=== PATIENT | female | born 2005 | race Caucasian/White ===

== ENCOUNTER 2023-03-02 02:01 | Emergency (ER) | payer OTHER, SELFPAY ==
[2023-03-02 02:03] VITALS: BP 143/82; PULSE 118; RESP 20; TEMP 37.7; O2SAT 97; BMI 32.1
[2023-03-02] MEDS: 0.9% Normal Saline (1000mL) 1,000 ML 1000 ML IV ×2 (03:28→04:10)
--- NOTE | 2023-03-02 03:28 | EDS_ITS ---
HPI History of Present Illness Chief Complaint: General Illness Informant: patient, parent and friend Narrative Narrative: 17-year-old female brought to the emergency department with fever and dehydration. Patient states that over the past 5 days she has developed headache fever vomiting generalized weakness. She states that she does not have any light sensitivity or neck pain. No rashes. She states she feels very dehydrated and lightheaded when she walks. She notes dark urine. No diarrhea. PFSH PFSH Medical History Anxiety Depression Obesity Tobacco use Medical History no medical history Home Medications fluoxetine 40 mg capsule (Prozac) 60 mg PO DAILY 03/02/23 [History Last Taken Unknown] ondansetron 4 mg disintegrating tablet 4 mg PO Q6H PRN PRN Nausea #15 tabs 03/02/23 [Rx Last Taken Unknown] potassium chloride 20 mEq tablet,extended release 20 meq PO BID #10 tabs 03/02/23 [Rx Last Taken Unknown] Allergy/AdvReac Type Severity Reaction Status Date / Time No Known Allergies Allergy Verified 03/02/23 02:06 Surgical History no surgical history Social History Smoking Status: Current some day smoker tobacco type: e-cigarettes EXAM Physical Exam Narrative Exam Narrative: Patient actively vomiting Const Vital Signs: 03/02/23 02:03 03/02/23 02:04 03/02/23 05:18 Temperature 100 F H Temperature Source Oral Pulse Rate 118 H 91 Respiratory Rate 20 H 18 Respiratory Effort Normal Respiratory Pattern Normal Blood Pressure 143/82 H 118/61 Blood Pressure Mean 102 80 Pulse Ox 97 95 Oxygen Delivery Method Room Air Room Air Positive well nourished and well developed General Appearance ED: well developed HEENT Reports normocephalic, head/scalp atraumatic and dry mucous membranes Mouth ED: Yes dry mucous membranes Mouth: dry mucous membranes Eyes PERRL and EOMs intact bilaterally Neck no lymphadenopathy, supple and no JVD Resp normal respiratory effort and clear to auscultation bilaterally Cardio regular rate, regular rhythm and no murmurs Rate: tachycardic GI normal to inspection, nondistended, normoactive bowel sounds and non-tender Palpation: soft Back/Spine no CVA tenderness and normal ROM Extremity normal to inspection General Extremety ED: Negative for edema General Extremity: Negative for edema Neuro oriented x3 and CN's II-XII intact bilaterally Sensorium / Orientation: alert Motor Exam: strength 5/5 throughout Psych mental status grossly normal Mood & Affect: Negative for depressed or tearful Skin no rashes or lesions noted and no wounds MDM MDM MDM Narrative Medical decision making narrative: IV was established and the patient received nausea medications and IV fluids. White count 4.1. Lymphocytes at 58.9. BMP potassium of 2.9 sodium 135. Patient has elevated transaminases and alkaline phosphatase but also an elevated bilirubin. Normal lipase not urinalysis with ketones and no overt infection. COVID influenza were negative. CT of the abdomen pelvis demonstrates some mild splenomegaly no biliary duct dilatation or inflammatory process. I added on mononucleosis which came back positive. This would certainly explain the splenomegaly the viral syndrome and the hepatitis. 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 In addition to IV fluids patient was able to tolerate oral potassium replacement. I am going to replace her potassium at home over the next 5 days as well as providing some Zofran. I talked to the patient and her friend and her mother at length. We talked about return instructions and that this may take a a while to improve. History & Record Review Discussion w/independent historian: Patient Lab Data Attestation: I reviewed the patient's lab results. Labs: Laboratory Results - last 24 hr 03/02/23 03/02/23 03/02/23 03:20 03:22 05:15 WBC 4.1 L RBC 4.59 Hgb 13.8 Hct 38.9 MCV 84.7 MCH 30.1 MCHC 35.5 RDW Std Deviation 36.7 RDW Coeff of Shaneka 12.1 Plt Count 101 L MPV 10.4 Immature Gran % (Auto) 0.500 Neut % (Auto) 35.4 L Lymph % (Auto) 58.9 H [place] % (Auto) 3.6 Eos % (Auto) 0.2 Baso % (Auto) 1.4 H Absolute Neuts (auto) 1.5 L Absolute Lymphs (auto) 2.44 Nucleated RBC % 0 Differential Comment SCANNED Reactive Lymphocytes 2+ Sodium 135 L Potassium 2.9 L Chloride 100 Carbon Dioxide 26.0 Anion Gap 9 BUN 5 L Creatinine 0.73 Estim Creat Clear Calc 111.54 Est GFR (MDRD) Af Amer 132 Est GFR (MDRD) Non-Af 109 BUN/Creatinine Ratio 6.9 L Glucose 105 Calcium 8.4 L Magnesium 1.7 Total Bilirubin 3.00 H Direct Bilirubin 1.91 H AST 402 H ALT 308 H Alkaline Phosphatase 157 H Total Protein 6.9 Albumin 3.2 Globulin 3.7 Lipase 32 Serum , Qual NEGATIVE Urine Color Yellow Urine Clarity Sl. Cloudy Urine pH 7.0 Ur Specific [place] 1.010 Urine Protein 15 H Urine Glucose (UA) Normal Urine Ketones 150 A* Urine Occult Blood 25 H Urine Nitrite Negative Urine Bilirubin 1 H Urine Urobilinogen 12 H Ur Leukocyte Esterase 100 H Urine RBC 0 SEEN Urine WBC 0-5 SEEN Ur Squamous Epith Cells 0-5 SEEN Urine Bacteria 0 SEEN Urine Mucus 0 SEEN Monoscreen POSITIVE H Radiography Diagnostic Testing: Clinical Impression(s) from Imaging Studies Chest X-Ray 03/02/23 03:40 IMPRESSION: No radiographic evidence of acute cardiopulmonary disease. Electronically Signed: Esteban Anglin MD at 4:13 EST , Abdomen/Pelvis CT 03/02/23 04:03 IMPRESSION: 1. Mild splenomegaly. 2. Fatty liver. 3. No biliary obstruction. 4. No acute abdominal pelvic abnormality. Electronically Signed: Esteban Anglin MD at 4:57 EST , Discharge Plan Triage Chief Complaint: General Illness ED Provider: Wilian Palacios Dx/Rx/DC Orders Clinical Impression: Acute dehydration, Acute hepatitis, Acute febrile illness, Acute hypokalemia, Infectious mononucleosis Instructions: ED Hypokalemia, ED Mononucleosis Prescriptions: New potassium chloride 20 mEq tablet extended release 20 meq PO BID Qty: 10 0RF ondansetron [ondansetron] 4 mg tablet,disintegrating 4 mg PO Q6H PRN PRN (Reason: Nausea) Qty: 15 0RF No Action fluoxetine [Prozac] 40 mg capsule 60 mg PO DAILY Primary Care Provider: Christopher Hampton Referrals: Christopher Hampton DO [Primary Care Provider] - 1 Week Disposition Disposition: Home, Self Care
[2023-03-02] MEDS: Ondansetron 4 MG/2 ML Vial IV (03:29)
[2023-03-02] MEDS: Ketorolac 30 MG/ML Syringe IV (03:29)
[2023-03-02 03:38] LABS: Absolute Lymphocyte Count 2.44 X10^3/uL (0.83-4.51); Absolute Neutrophil Count 1.5 X10^3/uL (2.0-7.7); Basophil# 0.06 X10^3/uL; Basophil% 1.4 % (0-1); Eosinophil# 0.01 X10^3/uL; Eosinophils% 0.2 % (0-5); Hematocrit 38.9 % (37-47); Hemoglobin 13.8 g/dL (12.0-15.0); Lymphocyte # 2.44 X10^3/ul (0.83-4.51); Lymphocyte % 58.9 % (19-41); Mean Corp Hgb Conc 35.5 g/dL (32-36); Mean Corpuscular Hgb 30.1 pg (27.0-32.0); Mean Corpuscular Volume 84.7 fL (81-99); Mean Platelet Vol. 10.4 fl (6.2-12.0); Monocyte# 0.15 X10^3/uL; Monocyte% 3.6 % (0-10); NRBC Flagged by Analyzer 0 % (0-5); Neutrophil # 1.46 X10^3/uL (2.7-7.7); Neutrophil % 35.4 % (47-70); POSITIVE MORPHOLOGY YES; Platelet Count 101 K/mm3 (150-450); RBC Distribution Width CV 12.1 % (11.6-14.6); RBC Distribution Width SD 36.7 fl (35.1-43.9); Red Blood Count 4.59 M/mm3 (4.2-5.4); White Blood Count 4.1 K/mm3 (4.4-11.0)
--- NOTE | 2023-03-02 03:40 | RAD_ITS ---
EXAM: XR CHEST, 1 VIEW CLINICAL INDICATION: fever and cough TECHNIQUE: Frontal view of the chest. COMPARISON: No relevant prior studies available. FINDINGS: LUNGS AND PLEURAL SPACES: Unremarkable. No consolidation or edema. No pneumothorax. No effusion. HEART: Unremarkable. Cardiac silhouette not enlarged. MEDIASTINUM: Central airways and mediastinal contour are unremarkable. BONES/JOINTS: Unremarkable. No acute fracture. SOFT TISSUES: Unremarkable. RAD/Chest 1 View (Portable) IMPRESSION: No radiographic evidence of acute cardiopulmonary disease. Electronically Signed: Esteban Anglin MD at 4:13 EST ,
[2023-03-02 03:42] LABS: Differential Indicated SCAN CRITERIA MET
[2023-03-02 03:43] LABS: Bacteria 0 SEEN /hpf (None Seen); Mucous, Urine 0 SEEN /hpf (<or=2+); Red Blood Cells-Urine 0 SEEN /hpf (0-5)
[2023-03-02 03:45] LABS: Color, Urine Yellow (Yellow); Glucose, Dipstick Normal (Normal); Leukocyte Esterase-Dipstick 100 /ul (Negative); Nitrite-Dipstick Negative (Negative); Occult Blood-Urine 25 /ul (Negative); Protein-Dipstick 15 mg/dl (Negative); Urine Clarity Sl. Cloudy (Clear); Urine Urobilinogen 12 mg/dl (Normal)
[2023-03-02 04:00] LABS: AST(SGOT) 402 U/L (15-37); Alanine Aminotransfer ALT/SGPT 308 U/L (13-56); Albumin, Serum 3.2 g/dL (3.2-5.0); Alkaline Phosphatase 157 U/L (45-117); Anion Gap 9 (5-15); BUN 5 mg/dL (7-18); BUN/Creat Ratio 6.9 RATIO (10-20); Bilirubin, Direct 1.91 mg/dL (0.00-0.30); Calcium,Total 8.4 mg/dL (8.5-10.1); Chloride 100 mmol/L (98-107); Creatinine, Serum 0.73 mg/dL (0.55-1.02); EST Glomerular Filtration Rate 109 mL/min (>60); Est Glom Filt Rate - Afr Amer 132 mL/min (>60); Estimated Creatinine Clearance 111.54 ml/min; Globulin 3.7 g/dL (2.2-4.2); Glucose 105 mg/dL (74-106); Lipase 32 U/L (13-75); Potassium 2.9 mmol/L (3.5-5.1); Protein, Total 6.9 g/dL (6.4-8.2); Sodium Level 135 mmol/L (136-145)
--- NOTE | 2023-03-02 04:03 | CT_ITS ---
EXAM: CT ABDOMEN AND PELVIS WITH INTRAVENOUS CONTRAST CLINICAL INDICATION: vomiting obstructive jaundice TECHNIQUE: Helically acquired images were obtained of the abdomen and pelvis with intravenous contrast. This CT exam was performed using one or more of the following dose reduction techniques: automated exposure control, adjustment of the mA and/or kV according to patient size, and/or use of iterative reconstruction technique. CONTRAST: 100 cc of Isovue-370 IV. RADIATION DOSE: CTDIvol = 10.61 mGy, DLP = 931.84 mGy-cm COMPARISON: No relevant prior studies available. FINDINGS: LOWER THORAX: Unremarkable. Lung bases are clear. No cardiomegaly. No significant pericardial effusion. ABDOMEN: LIVER: There is diffuse low-attenuation of the liver. GALLBLADDER AND BILE DUCTS: Unremarkable. No calcified gallstones. No gallbladder distention or wall edema. No intra- or extrahepatic biliary ductal dilation. PANCREAS: Unremarkable. No focal cystic or solid mass. SPLEEN: Mild splenomegaly. ADRENALS: Unremarkable. No nodules. KIDNEYS AND URETERS: Unremarkable. Normal renal size and position. No hydronephrosis. STOMACH AND BOWEL: Unremarkable. No stomach or bowel distention. No focal inflammatory change. PELVIS: APPENDIX: Normal appendix. BLADDER: Unremarkable. REPRODUCTIVE: Unremarkable as visualized. No mass. ABDOMEN and PELVIS: INTRAPERITONEAL SPACE: Unremarkable. No ascites or other fluid collection. No free air. BONES/JOINTS: Unremarkable. No suspicious lytic or blastic abnormality. SOFT TISSUES: Unremarkable. No discrete abdominal or pelvic wall hernia. VASCULATURE: Unremarkable. Abdominal aorta is non-dilated. LYMPH NODES: Unremarkable. No enlarged lymph nodes. CT/Abdomen/Pelvis W IV Cont ONLY IMPRESSION: 1. Mild splenomegaly. 2. Fatty liver. 3. No biliary obstruction. 4. No acute abdominal pelvic abnormality. Electronically Signed: Esteban Anglin MD at 4:57 EST ,
[2023-03-02 04:05] LABS: Urine Bilirubin Dipstick 1 mg/dL (Negative)
[2023-03-02 04:07] LABS: Ketone-Dipstick 150 mg/dl (Negative); White Blood Cells 0-5 SEEN /hpf (0-5)
[2023-03-02 04:08] LABS: Squamous Epithelial Cells - UA 0-5 SEEN /hpf (5-10)
[2023-03-02 04:14] LABS: Internal QC Validated? YES +Cl - CLEAR BKGD; Pregnancy, Serum, hCG Quali. NEGATIVE Negative
[2023-03-02 04:34] LABS: Differential Comment SCANNED; Reactive Lymphocyte 2+
[2023-03-02 05:18] VITALS: BP 118/61; PULSE 91; RESP 18; O2SAT 95
[2023-03-02] MEDS: Potassium Chloride Oral Soln 20 MEQ/15 ML UDC 40 MEQ PO (05:30)
[2023-03-02 05:45] LABS: Magnesium 1.7 mg/dL (1.6-2.6)
[2023-03-02 05:50] LABS: Internal QC Validated? YES +Cl - CLEAR BKGD; Monotest POSITIVE (Negative); Record Kit Lot#, Mono 13231163
[2023-03-02] MEDS: 0.9% Normal Saline (1000mL) 1,000 ML 200 ML IV (05:50)
[2023-03-02 07:10] VITALS: BP 103/73; PULSE 96; RESP 20; O2SAT 97
[2023-03-04 13:08] LABS: HEPATITIS B SURFACE AG Negative (Negative); Hep C Antibodies Non Reactive (Non Reactive); Hepatitis A IgM Antibody Negative (Negative); Hepatitis B Core AB IgM Negative (Negative)
== END 2023-03-02 07:35 | disposition home or self-care (01) ==
PROVIDERS: Emergency Provider Emergency Medicine; PCP Family Medicine; Visit Provider Emergency Medicine
DX: E86.0 Dehydration (principal); K75.9 Inflammatory liver disease, unspecified; R50.9 Fever, unspecified; E87.6 Hypokalemia; B27.90 Infectious mononucleosis, unspecified without complication; F17.290 Nicotine dependence, other tobacco product, uncomplicated; F41.9 Anxiety disorder, unspecified; F32.A Depression, unspecified; Z79.899 Other long term (current) drug therapy
CPT/HCPCS: 71045; 74177; 80048; 80074; 80076; 81001; 83690; 83735; 84703; 85025; 86308; 87040; 87428; 96361; 96374; 96375; 99284; J7030; Q9967; A4216; J2405

== ENCOUNTER 2023-03-05 19:34 | Inpatient (IN) | payer OTHER, SELFPAY ==
[2023-03-05 19:40] VITALS: BP 121/75; PULSE 107; RESP 20; TEMP 37.6; O2SAT 98; BMI 32.7
[2023-03-05] MEDS: 0.9% Normal Saline (1000mL) 1,000 ML 1000 ML IV (20:07)
[2023-03-05 20:16] LABS: Absolute Lymphocyte Count 10.71 X10^3/uL (0.83-4.51); Absolute Neutrophil Count 2.3 X10^3/uL (2.0-7.7); Basophil# 0.06 X10^3/uL; Basophil% 0.4 % (0-1); Eosinophil# 0.09 X10^3/uL; Eosinophils% 0.6 % (0-5); Hemoglobin 13.4 g/dL (12.0-15.0); Lymphocyte # 10.71 X10^3/ul (0.83-4.51); Lymphocyte % 72.7 % (19-41); Mean Corp Hgb Conc 34.4 g/dL (32-36); Mean Corpuscular Volume 87.2 fL (81-99); Mean Platelet Vol. 10.6 fl (6.2-12.0); Monocyte# 1.52 X10^3/uL; Monocyte% 10.3 % (0-10); NRBC Flagged by Analyzer 0 % (0-5); Neutrophil # 2.29 X10^3/uL (2.7-7.7); Neutrophil % 15.6 % (47-70); POSITIVE DIFFERENTIAL YES; POSITIVE MORPHOLOGY YES; Platelet Count 128 K/mm3 (150-450); RBC Distribution Width CV 13.1 % (11.6-14.6); RBC Distribution Width SD 41.6 fl (35.1-43.9); Red Blood Count 4.47 M/mm3 (4.2-5.4); White Blood Count 14.7 K/mm3 (4.4-11.0)
--- NOTE | 2023-03-05 20:22 | EX.ED.DYSGE1 ---
HPI <CODY Mack - Last Filed: 03/05/23 21:30> History of Present Illness Chief Complaint: Abd Pain Narrative Narrative: Patient presenting today with her mom due to fatigue, abdominal pain, headaches, weakness, decreased appetite, leg cramps, and dehydration. Mom reports that on 03/02/2023 she was diagnosed with mononucleosis hepatitis. Patient reports that her symptoms have not necessarily gotten worse since then, but they are not getting any better. She reports that she is eating and drinking very little. She has only had one episode of vomiting since being seen on the . She has had intermittent fevers. She denies a PMH of any chronic health conditions. PFSH <CODY Mack - Last Filed: 03/05/23 21:30> PFSH Medical History Anxiety Depression Obesity Tobacco use Home Medications fluoxetine 40 mg capsule (Prozac) 60 mg PO DAILY 03/02/23 [History Last Taken Unknown] ondansetron 4 mg disintegrating tablet 4 mg PO Q6H PRN PRN Nausea #15 tabs 03/02/23 [Rx Last Taken Unknown] potassium chloride 20 mEq tablet,extended release 20 meq PO BID #10 tabs 03/02/23 [Rx Last Taken Unknown] Allergy/AdvReac Type Severity Reaction Status Date / Time No Known Allergies Allergy Verified 03/02/23 02:06 Social History Smoking Status: Current some day smoker tobacco type: e-cigarettes ROS <CODY Mack - Last Filed: 03/05/23 21:30> ROS ED Constitutional Constitutional ED: Reports fever(s) Cardiovascular Cardiovascular: Denies chest pain or palpitations Respiratory/Chest Respiratory/Chest: Denies cough or dyspnea Gastrointestinal Gastrointestinal: Reports abdominal pain and nausea; Denies constipation, diarrhea or vomiting Genitourinary Genitourinary ED: Denies dysuria, hematuria or urinary urgency Musculoskeletal Musculoskeletal: Reports myalgias Integumentary Denies rash Neurologic Neurologic: Reports headache(s) and weakness EXAM <CODY Mack - Last Filed: 03/05/23 21:30> Physical Exam Const Vital Signs: 03/05/23 19:40 03/05/23 21:31 Temperature 99.7 F H Temperature Source Oral Pulse Rate 107 H 94 Respiratory Rate 20 H 14 Blood Pressure 121/75 H 104/74 Blood Pressure Mean 90 84 Pulse Ox 98 100 Oxygen Delivery Method Room Air Positive well nourished, well developed and no apparent distress General Appearance ED: well developed HEENT Reports normocephalic, head/scalp atraumatic and dry mucous membranes HEENT Narrative: Posterior pharynx clear, uvula midline Mouth ED: Yes moist mucous membranes normal and Yes dry mucous membranes Mouth: dry mucous membranes Eyes PERRL and EOMs intact bilaterally Eyes Narrative: Minimal scleral icterus Neck full ROM and supple Chest Wall inspection of chest normal Resp normal respiratory effort and clear to auscultation bilaterally Cardio regular rate and regular rhythm GI soft to palpation, non-distended and no masses GI Narrative: Left upper quadrant tenderness to palpation without any rigidity, guarding, or peritoneal signs Back/Spine normal ROM and normal to inspection Extremity normal to inspection and full ROM Neuro oriented x3, CN's II-XII intact bilaterally, moves all extremities, no focal motor deficits and no sensory deficits noted Sensorium / Orientation: awake and alert Psych mental status grossly normal and thought process normal Skin no rashes or lesions noted and no wounds Skin Narrative: Mildly jaundiced. <Antolin Guerin MD - Last Filed: 03/05/23 21:57> Physical Exam Const Vital Signs: 03/05/23 19:40 03/05/23 21:31 Temperature 99.7 F H Temperature Source Oral Pulse Rate 107 H 94 Respiratory Rate 20 H 14 Blood Pressure 121/75 H 104/74 Blood Pressure Mean 90 84 Pulse Ox 98 100 Oxygen Delivery Method Room Air [facility] <CODY Mack - Last Filed: 03/05/23 21:30> [facility] Narrative Medical decision making narrative: Patient presenting with mononucleosis hepatitis. She was diagnosed on 03/02/2023 after having weakness, nausea, vomiting, and other cold-like symptoms for about 5 days. She reports that her symptoms are not necessarily worsening, they just are not improving. She has been feeling weak, fatigued, has a decreased appetite, feels dehydrated, and still has left upper quadrant abdominal pain. She is dry appearing, slightly febrile and mildly tachycardic. She is slightly jaundiced. She will be given IV fluids and ibuprofen. I reviewed her previous visit, hepatitis panel was obtained and was negative. CT of the abdomen and pelvis at that time showed splenomegaly. Labs will be obtained to rule out electrolyte abnormality, PREET, and assess liver enzymes. Patient's bilirubin and transaminases are elevated. I did speak with Dr. Rangel who recommends obtaining several different labs as well as having patient repeat blood daily for the next 3 days and to possibly add on steroids. I do feel that it would be beneficial for patient to be admitted to the hospital for further treatment and patient and her mother agree. She will be given additional IV fluids and I will speak with the hospitalist. I again spoke with Dr. Rangel, he does not recommend starting steroids at this time. He reports that it is very rare to see liver failure in cases like this and has low suspicion that patient would need transfer to a tertiary center with hepatology. He is willing to be consulted. Lab Data Attestation: I reviewed the patient's lab results. Lab results narrative: WBC 14.7, platelet count 128, elevated lymphocytes, sodium 134, bilirubin 6.6, AST 453, ALT 472, alkaline phosphatase 281 Labs: Laboratory Results - last 24 hr 03/05/23 03/05/23 20:00 21:10 WBC 14.7 H RBC 4.47 Hgb 13.4 Hct 39.0 MCV 87.2 MCH 30.0 MCHC 34.4 RDW Std Deviation 41.6 RDW Coeff of [place] 13.1 Plt Count 128 L MPV 10.6 Immature Gran % (Auto) 0.400 Neut % (Auto) 15.6 L Lymph % (Auto) 72.7 H [place] % (Auto) 10.3 H Eos % (Auto) 0.6 Baso % (Auto) 0.4 Absolute Neuts (auto) 2.3 Absolute Lymphs (auto) 10.71 H Nucleated RBC % 0 Differential Comment Diff Path Review July foll ESR 7 PT 14.1 INR 1.1 Sodium 134 L Potassium 3.9 Chloride 101 Carbon Dioxide 26.0 Anion Gap 7 BUN 6 L Creatinine 0.53 L Estim Creat Clear Calc 153.63 Est GFR (MDRD) Af Amer 192 Est GFR (MDRD) Non-Af 158 BUN/Creatinine Ratio 11.4 Glucose 94 Lactic Acid 1.7 Calcium 8.5 Total Bilirubin 6.60 H AST 453 H ALT 472 H Alkaline Phosphatase 281 H Lactate Dehydrogenase 697 H Total Creatine Kinase 20 L C-React Prot Ext Range 41.60 H Total Protein 7.0 Albumin 2.7 L Globulin 4.3 H Albumin/Globulin Ratio 0.6 L <Antolin Guerin MD - Last Filed: 03/05/23 21:57> [facility] Narrative Medical decision making narrative: Patient presenting with mononucleosis hepatitis. She was diagnosed on 03/02/2023 after having weakness, nausea, vomiting, and other cold-like symptoms for about 5 days. She reports that her symptoms are not necessarily worsening, they just are not improving. She has been feeling weak, fatigued, has a decreased appetite, feels dehydrated, and still has left upper quadrant abdominal pain. She is dry appearing, slightly febrile and mildly tachycardic. She is slightly jaundiced. She will be given IV fluids and ibuprofen. I reviewed her previous visit, hepatitis panel was obtained and was negative. CT of the abdomen and pelvis at that time showed splenomegaly. Labs will be obtained to rule out electrolyte abnormality, PREET, and assess liver enzymes. Patient's bilirubin and transaminases are elevated. I did speak with Dr. Rangel who recommends obtaining several different labs as well as having patient repeat blood daily for the next 3 days and to possibly add on steroids. I do feel that it would be beneficial for patient to be admitted to the hospital for further treatment and patient and her mother agree. She will be given additional IV fluids and I will speak with the hospitalist. I again spoke with Dr. Rangel, he does not recommend starting steroids at this time. He reports that it is very rare to see liver failure in cases like this and has low suspicion that patient would need transfer to a tertiary center with hepatology. He is willing to be consulted. Dr. Guerin: I have personally performed a face to face assessment of the patient and have reviewed the SMITH Note. I performed a substantive portion of the visit including all aspects of the following. My bundy findings include: History is recent diagnosis of mononucleosis. Had hepatitis and splenomegaly on CT scan. Returns with feelings of dehydration, rapid heart rate, and now yellow skin. Exam is afebrile. Vital signs noted. Positive tachycardia. Lungs clear to auscultation bilaterally. Abdomen soft with normal active bowel sounds. Positive jaundice of skin. Medical Decision Making: I reviewed the patient's prior ED visit and her CT scan showed no evidence of obstructive process in the liver. Recheck LFTs.. Discussed with gastroenterology. Review of hepatitis panel is negative. Check INR. As the patient will require serial laboratories and she has worsening LFTs and continued tachycardia, patient discussed with the hospitalist as well for admission. Patient is in stable condition. Other additions or changes: [None] History & Record Review Discussion w/independent historian: Patient and Family Additional record(s) reviewed:: Prior ED visit and Prior labs Lab Data Labs: Laboratory Results - last 24 hr 03/05/23 03/05/23 20:00 21:10 WBC 14.7 H RBC 4.47 Hgb 13.4 Hct 39.0 MCV 87.2 MCH 30.0 MCHC 34.4 RDW Std Deviation 41.6 RDW Coeff of [place] 13.1 Plt Count 128 L MPV 10.6 Immature Gran % (Auto) 0.400 Neut % (Auto) 15.6 L Lymph % (Auto) 72.7 H [place] % (Auto) 10.3 H Eos % (Auto) 0.6 Baso % (Auto) 0.4 Absolute Neuts (auto) 2.3 Absolute Lymphs (auto) 10.71 H Nucleated RBC % 0 Differential Comment Diff Path Review May foll ESR 7 PT 14.1 INR 1.1 Sodium 134 L Potassium 3.9 Chloride 101 Carbon Dioxide 26.0 Anion Gap 7 BUN 6 L Creatinine 0.53 L Estim Creat Clear Calc 153.63 Est GFR (MDRD) Af Amer 192 Est GFR (MDRD) Non-Af 158 BUN/Creatinine Ratio 11.4 Glucose 94 Lactic Acid 1.7 Calcium 8.5 Total Bilirubin 6.60 H AST 453 H ALT 472 H Alkaline Phosphatase 281 H Lactate Dehydrogenase 697 H Total Creatine Kinase 20 L C-React Prot Ext Range 41.60 H Total Protein 7.0 Albumin 2.7 L Globulin 4.3 H Albumin/Globulin Ratio 0.6 L Discharge Plan Triage Chief Complaint: Abd Pain ED Midlevel Provider: Sana Castro ED Provider: Antolin Guerin Dx/Rx/DC Orders Clinical Impression: Acute dehydration, Infectious mononucleosis, Acute hepatitis Primary Care Provider: Christopher Hampton
[2023-03-05 20:31] LABS: Differential Indicated SCAN CRITERIA MET
[2023-03-05 20:33] LABS: ALB/GLOB Ratio 0.6 RATIO (0.9-2.4); AST(SGOT) 453 U/L (15-37); Alanine Aminotransfer ALT/SGPT 472 U/L (13-56); Albumin, Serum 2.7 g/dL (3.2-5.0); Alkaline Phosphatase 281 U/L (45-117); Anion Gap 7 (5-15); BUN 6 mg/dL (7-18); BUN/Creat Ratio 11.4 RATIO (10-20); Calcium,Total 8.5 mg/dL (8.5-10.1); Chloride 101 mmol/L (98-107); Creatinine, Serum 0.53 mg/dL (0.55-1.02); EST Glomerular Filtration Rate 158 mL/min (>60); Est Glom Filt Rate - Afr Amer 192 mL/min (>60); Estimated Creatinine Clearance 153.63 ml/min; Globulin 4.3 g/dL (2.2-4.2); Glucose 94 mg/dL (74-106); Potassium 3.9 mmol/L (3.5-5.1); Sodium Level 134 mmol/L (136-145)
[2023-03-05] MEDS: Ibuprofen 200 MG Tablet 400 MG PO (20:33)
[2023-03-05 21:12] LABS: International Normalized Ratio 1.1; Prothrombin Time (Protime)PT. 14.1 SECONDS (11.7-14.9)
[2023-03-05] MEDS: 0.9% Normal Saline (1000mL) 1,000 ML 999 ML IV (21:18)
--- NOTE | 2023-03-05 21:21 | PCM.HP.STD ---
[facility] - General General Date of Admission: 03/05/23 Date of Service: 03/05/23 Chief Complaint: Jaundice and abdominal pain. HPI Narrative EDDIE DAMON, is a 17 F with a past medical history of tobacco abuse, obesity; with BMI of 32.8 this admission, depression with anxiety and recently diagnosed infectious mononucleosis hepatitis with a recent admission to the ER here approximately three days ago who re-presents to the [facility] ER planing of continued jaundice and abdominal pain. Ms. Damon reports her's began approximately 5 days prior to admission with the abrupt onset of fatigue, malaise, generalized abdominal pain with decreased appetite and dehydration due to poor oral intake. Her mother informed the ER provider that she was formally diagnosed with mononucleosis hepatitis on March 02, 2023 and that her symptoms have not improved since that time. She also admits to intermittent fevers but she denies a history of liver injury due to Tylenol or other viral hepatitides. In the ER she was noted to have leukocytosis of 14.7 present on admission with moderate thrombocytopenia of 128 present on admission complicated by worsening acute liver inflammation evidenced by total bilirubin of 6.6 mg/dL (up from 3 mg/dL on 03/02/2023) along with hyper transaminasemia with AST of 453 U/L and ALT of 472 U/L (up from 402 U/L and 308 U/L respectively on 03/02/2023) and a normal INR of 1.1 present on admission with the ER provider recommending patient be admitted for IV fluids and possible steroid treatment after they conferred with Dr. Rangel of gastroenterology whose help is greatly appreciated. She was then admitted to the general medical floor for ongoing care for stay that is expected to be greater than 48 hours. [facility] Medical History Anxiety Depression Obesity Tobacco use Home Medications fluoxetine 40 mg capsule (Prozac) 60 mg PO DAILY depression 03/02/23 [History Last Taken 03/05/23] ondansetron 4 mg disintegrating tablet 4 mg PO Q6H PRN PRN Nausea #15 tabs 03/02/23 [Rx Last Taken Unknown] potassium chloride 20 mEq tablet,extended release 20 meq PO BID mineral #10 tabs 03/02/23 [Rx Last Taken 03/05/23] Allergy/AdvReac Type Severity Reaction Status Date / Time No Known Allergies Allergy Verified 03/02/23 02:06 Social History Smoking Status: Former smoker ROS ROS Narrative Review of systems: Constitutional: Patient admits to fevers, generalized weakness and malaise that is severe. Eyes: Patient denies visual changes but has obvious jaundice. ENT: Patient denies runny nose, ear pain or sore throat. Cardiovascular: Patient denies chest pain, chest pressure or palpitations. Respiratory: Patient denies shortness of breath or cough. Gastrointestinal: Patient admits to abdominal pain with nausea and very poor appetite. Genitourinary: Patient denies dysuria, hematuria or urinary frequency. Musculoskeletal: Patient admits to myalgias that are severe. Integumentary: Patient denies rash but has obvious jaundice. Neurologic: Patient admits to generalized tension type headache but denies paresthesias or focal neurologic weakness. Allergic: Patient denies lip swelling, tongue swelling or urticaria. Hematologic: Patient denies easy bleeding or easy bruisability. 14 point review systems otherwise negative except for positives noted above in HPI. Vital Signs Vital Signs Vital Signs: 03/05/23 19:40 Temperature 99.7 F H Temperature Source Oral Pulse Rate 107 H Respiratory Rate 20 H Blood Pressure 121/75 H Blood Pressure Mean 90 Pulse Ox 98 Oxygen Delivery Method Room Air Weight Weight: 196 lb 13.965 oz Body Mass Index (BMI) 32.7 Physical Exam Const alert and oriented x3 Constitutional Narrative: Patient is obese and appears to be in mild to moderate discomfort. General Appearance: cooperative HEENT normocephalic, head/scalp atraumatic and hearing grossly normal bilaterally HEENT Narrative: Oropharynx dry. Eyes PERRL and EOMs intact bilaterally Eyes Narrative: Conjunctivae are jaundiced. Neck no lymphadenopathy and supple Resp normal respiratory effort, no retractions, no use of accessory muscles and clear to auscultation bilaterally Cardio regular rate and regular rhythm GI normal to inspection, nondistended, normoactive bowel sounds, soft to palpation, non-distended and hepatosplenomegaly GI Narrative: Patient's abdomen is generally tender to palpation with evidence of hepatosplenomegaly. Extremity normal to inspection, full ROM and no clubbing, cyanosis or edema Skin Skin Narrative: Patient has no evidence of rash at this time but is severely jaundiced. Neuro oriented x3, CN's II-XII intact bilaterally, moves all extremities and no focal motor deficits Sensorium / Orientation: awake, alert, oriented to person, oriented to place and oriented to time Speech: speech normal Motor Exam: strength 5/5 throughout Psych affect normal Results Medical Records Data Attestation: I reviewed the patient's medical records Lab / Micro Data Attestation: I reviewed the patient's lab results. 03/05/23 20:00 03/05/23 20:00 Labs: Laboratory Results - last 24 hr 03/05/23 20:00: WBC 14.7 H, RBC 4.47, Hgb 13.4, Hct 39.0, MCV 87.2, MCH 30.0, MCHC 34.4, RDW Std Deviation 41.6, RDW Coeff of [place] 13.1, Plt Count 128 L, MPV 10.6, Immature Gran % (Auto) 0.400, Neut % (Auto) 15.6 L, Lymph % (Auto) 72.7 H, [place] % (Auto) 10.3 H, Eos % (Auto) 0.6, Baso % (Auto) 0.4, Absolute Neuts (auto) 2.3, Absolute Lymphs (auto) 10.71 H, Nucleated RBC % 0, Differential Comment , Diff Path Review July, PT 14.1, INR 1.1, Sodium 134 L, Potassium 3.9, Chloride 101, Carbon Dioxide 26.0, Anion Gap 7, BUN 6 L, Creatinine 0.53 L, Estim Creat Clear Calc 153.63, Est GFR (MDRD) Af Amer 192, Est GFR (MDRD) Non-Af 158, BUN/Creatinine Ratio 11.4, Glucose 94, Calcium 8.5, Total Bilirubin 6.60 H, AST 453 H, ALT 472 H, Alkaline Phosphatase 281 H, Total Protein 7.0, Albumin 2.7 L, Globulin 4.3 H, Albumin/Globulin Ratio 0.6 L Assessment & Plan Assessment/Plan (1) Infectious mononucleosis: QUALIFIERS: Infectious mononucleosis complication: other complications Infectious mononucleosis etiology: unspecified organism Qualified Code(s): B27.99 - Infectious mononucleosis, unspecified with other complication (2) Acute hepatitis: (3) Acute dehydration: PLAN: Plan 1. Severe acute infectious mononocleosis hepatitis with hyperbilirubinemia and hypertransaminasemia with leukocytosis of 14.7 and moderate thrombocytopenia of 128 present on admission as outlined above - Admit to general medical floor for supportive care. Give aggressive IV fluid volume resuscitation and avoid potentially hepatotoxic agents. She has both an infectious and autoimmune laboratory panel for hepatitis that are pending at this time. Patient may require treatment with steroids which will be decided later by gastroenterology/Dr. Rangel who will be asked to consult on this patient on rounds in the a.m. with help appreciated in advance. We will also check daily INR to trend the liver's level of synthetic function of clotting factors. 2. Acute dehydration with loss of appetite and poor oral intake with hypoalbuminemia of 2.7 g/dL present on admission suggestive of possible protein calorie malnutrition arising from #1 - Continue supportive care monitor for improvement. Add nutritional meal supplement. Check prealbumin to confirm suspicion. 3. Obesity; with BMI of 32.8 this admission - Weight loss will be recommended. Check TSH. 4. Tobacco abuse - Tobacco cessation will be strongly encouraged. 5. Depression with anxiety - Resume fluoxetine as previous plus give as needed Xanax for breakthrough symptoms. 6. DVT prophylaxis - Lovenox 40 mg subcu daily plus SCDs. Total time: Approximately 55 minutes. Charges/Coding Visit Charges Inpatient E&M: 96328 Init Hosp L2
[2023-03-05 21:25] LABS: Erythrocyte Sedimentation Rate 7 mm/hr (0-30)
[2023-03-05 21:31] VITALS: BP 104/74; PULSE 94; RESP 14; O2SAT 100
[2023-03-05 21:34] LABS: CPK Total, Creatine Kinase 20 U/L (26-192)
[2023-03-05 21:40] LABS: LDH 697 U/L (84-246)
[2023-03-05 21:44] LABS: Lactic Acid 1.7 mmol/L (0.4-1.9)
[2023-03-05 22:39] VITALS: BP 109/67; PULSE 94; RESP 14; O2SAT 99
[2023-03-05 22:57] VITALS: BMI 32.4
[2023-03-05 23:07] VITALS: BP 113/65; PULSE 82; RESP 17; TEMP 36.4; O2SAT 100
[2023-03-05] MEDS: Lactated Ringers 1,000 ML 150 ML IV (23:27)
[2023-03-05] MEDS: 0.9% Saline Lock 10 ML Syringe IV (23:28)
--- NOTE | 2023-03-05 23:29 | NURSING ---
Pt in isolation. 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 Mother said her will take them home tomorrow
[2023-03-05] MEDS: Heparin Injection (Vial) 5,000 UNIT/ML VIAL 5000 UNIT SC (23:39)
[2023-03-06 05:50] VITALS: BP 108/58; PULSE 109; RESP 14; TEMP 36.6; O2SAT 97
[2023-03-06] MEDS: Lactated Ringers 1,000 ML 150 ML IV ×3 (05:51→19:58)
[2023-03-06] MEDS: Heparin Injection (Vial) 5,000 UNIT/ML VIAL 5000 UNIT SC ×3 (05:54→23:37)
[2023-03-06 07:53] LABS: Absolute Lymphocyte Count 8.37 X10^3/uL (0.83-4.51); Absolute Neutrophil Count 1.9 X10^3/uL (2.0-7.7); Basophil# 0.11 X10^3/uL; Eosinophil# 0.11 X10^3/uL; Hematocrit 33.4 % (37-47); Hemoglobin 11.3 g/dL (12.0-15.0); Lymphocyte # 8.37 X10^3/ul (0.83-4.51); Lymphocyte % 76.9 % (19-41); Mean Corp Hgb Conc 33.8 g/dL (32-36); Mean Corpuscular Hgb 29.9 pg (27.0-32.0); Mean Corpuscular Volume 88.4 fL (81-99); Mean Platelet Vol. 10.1 fl (6.2-12.0); Monocyte# 0.38 X10^3/uL; Monocyte% 3.5 % (0-10); NRBC Flagged by Analyzer 0 % (0-5); Neutrophil # 1.87 X10^3/uL (2.7-7.7); Neutrophil % 17.1 % (47-70); POSITIVE DIFFERENTIAL YES; POSITIVE MORPHOLOGY YES; Platelet Count 100 K/mm3 (150-450); RBC Distribution Width CV 13.2 % (11.6-14.6); RBC Distribution Width SD 43.2 fl (35.1-43.9); Red Blood Count 3.78 M/mm3 (4.2-5.4); White Blood Count 10.9 K/mm3 (4.4-11.0)
[2023-03-06 08:00] LABS: Differential Indicated SCAN CRITERIA MET
[2023-03-06 08:09] LABS: International Normalized Ratio 1.2; Prothrombin Time (Protime)PT. 15.1 SECONDS (11.7-14.9)
[2023-03-06 08:19] LABS: ALB/GLOB Ratio 0.6 RATIO (0.9-2.4); AST(SGOT) 372 U/L (15-37); Alanine Aminotransfer ALT/SGPT 384 U/L (13-56); Albumin, Serum 2.1 g/dL (3.2-5.0); Alkaline Phosphatase 235 U/L (45-117); Anion Gap 8 (5-15); BUN 5 mg/dL (7-18); BUN/Creat Ratio 10.8 RATIO (10-20); Calcium,Total 7.9 mg/dL (8.5-10.1); Chloride 105 mmol/L (98-107); Creatinine, Serum 0.46 mg/dL (0.55-1.02); EST Glomerular Filtration Rate 184 mL/min (>60); Est Glom Filt Rate - Afr Amer 222 mL/min (>60); Estimated Creatinine Clearance 177.01 ml/min; Globulin 3.5 g/dL (2.2-4.2); Glucose 86 mg/dL (74-106); Phosphorus 2.4 mg/dL (2.5-4.9); Protein, Total 5.6 g/dL (6.4-8.2); Sodium Level 137 mmol/L (136-145); Thyroid Stim Hormone (TSH) 1.63 uIU/mL (0.358-3.74)
[2023-03-06 08:20] LABS: LDH 580 U/L (84-246)
[2023-03-06 08:23] LABS: Partial Thromboplast Time 33.1 Seconds (24.1-36.2)
[2023-03-06 08:40] LABS: Differential Comment SCANNED; Reactive Lymphocyte 1+
[2023-03-06 09:09] VITALS: BP 108/65; PULSE 101; RESP 16; TEMP 37.8; O2SAT 98
[2023-03-06] MEDS: Ensure Clear 120 ML Liquid PO ×3 (09:35→17:15)
[2023-03-06] MEDS: Ondansetron 4 MG/2 ML Vial IV (09:36)
[2023-03-06] MEDS: FLUoxetine 20 MG Capsule 60 MG PO (09:37)
[2023-03-06] MEDS: Cholecalciferol (Vit D3) 125 MCG CAPSULE (5,000 UNITS) PO (09:37)
[2023-03-06] MEDS: 0.9% Saline Lock 10 ML Syringe IV (09:37)
[2023-03-06] MEDS: Zinc Sulfate 50 mg zinc (220 mg) ORAL capsule PO (09:37)
[2023-03-06] MEDS: Ascorbic Acid 500 MG Tablet 1000 MG PO (09:38)
--- NOTE | 2023-03-06 09:53 | PCM.PN.HOSP ---
Subjective Subjective Doing well, no issues overnight. Still has some left-sided abdominal pain Objective Data Objective Data Vital Signs: Vital Signs Temp Pulse Resp BP Pulse Ox O2 Del Method 100.1 F H 101 H 16 108/65 98 Room Air 03/06/23 09:09 03/06/23 09:09 03/06/23 09:09 03/06/23 09:09 03/06/23 09:09 03/06/23 09:09 Oxygen Delivery Method Room Air Weight: 194 lb 14.218 oz Body Mass Index (BMI) 32.4 Intake & Output: Intake and Output for Last 24 Hours 03/05/23 03/06/23 03/07/23 03:59 03:59 03:59 Intake Total 1999 960 / 960 Output Total 600 / 600 Balance 1999 360 / 360 Lab / Micro Data 03/06/23 07:28 03/06/23 07:28 Labs: Laboratory Results - last 24 hr 03/05/23 20:00: WBC 14.7 H, RBC 4.47, Hgb 13.4, Hct 39.0, MCV 87.2, MCH 30.0, MCHC 34.4, RDW Std Deviation 41.6, RDW Coeff of [place] 13.1, Plt Count 128 L, MPV 10.6, Immature Gran % (Auto) 0.400, Neut % (Auto) 15.6 L, Lymph % (Auto) 72.7 H, [place] % (Auto) 10.3 H, Eos % (Auto) 0.6, Baso % (Auto) 0.4, Absolute Neuts (auto) 2.3, Absolute Lymphs (auto) 10.71 H, Nucleated RBC % 0, Differential Comment , Diff Path Review July, PT 14.1, INR 1.1, Sodium 134 L, Potassium 3.9, Chloride 101, Carbon Dioxide 26.0, Anion Gap 7, BUN 6 L, Creatinine 0.53 L, Estim Creat Clear Calc 153.63, Est GFR (MDRD) Af Amer 192, Est GFR (MDRD) Non-Af 158, BUN/Creatinine Ratio 11.4, Glucose 94, Calcium 8.5, Total Bilirubin 6.60 H, AST 453 H, ALT 472 H, Alkaline Phosphatase 281 H, Lactate Dehydrogenase 697 H, Total Creatine Kinase 20 L, C-React Prot Ext Range 41.60 H, Total Protein 7.0, Albumin 2.7 L, Globulin 4.3 H, Albumin/Globulin Ratio 0.6 L 03/05/23 21:10: ESR 7, Lactic Acid 1.7 03/06/23 07:28: WBC 10.9, RBC 3.78 L, Hgb 11.3 L, Hct 33.4 L, MCV 88.4, MCH 29.9, MCHC 33.8, RDW Std Deviation 43.2, RDW Coeff of [place] 13.2, Plt Count 100 L, MPV 10.1, Immature Gran % (Auto) 0.500, Neut % (Auto) 17.1 L, Lymph % (Auto) 76.9 H, [place] % (Auto) 3.5, Eos % (Auto) 1.0, Baso % (Auto) 1.0, Absolute Neuts (auto) 1.9 L, Absolute Lymphs (auto) 8.37 H, Nucleated RBC % 0, Differential Comment SCANNED, Reactive Lymphocytes 1+, PT 15.1 H, INR 1.2, APTT 33.1, Sodium 137, Potassium 4.0, Chloride 105, Carbon Dioxide 24.0, Anion Gap 8, BUN 5 L, Creatinine 0.46 L, Estim Creat Clear Calc 177.01, Est GFR (MDRD) Af Amer 222, Est GFR (MDRD) Non-Af 184, BUN/Creatinine Ratio 10.8, Glucose 86, Calcium 7.9 L, Phosphorus 2.4 L, Total Bilirubin 5.20 H, AST 372 H, ALT 384 H, Alkaline Phosphatase 235 H, Lactate Dehydrogenase 580 H, Total Protein 5.6 L, Albumin 2.1 L, Globulin 3.5, Albumin/Globulin Ratio 0.6 L, TSH 1.63 Physical Exam Narrative General: Alert, Oriented x3, Cooperative, No apparent distress HEENT: Atraumatic, PERRLA, EOMI, Normocephalic Oral: Moist Mucosa Neck: Supple, No JVD Lungs: Clear to auscultation, Normal air movement, No rhonchi, No wheeze, No rales Cardiovascular: Tachycardic, Regular Rhythm, Normal S1, Normal S2, No murmurs Abdomen: Soft, tender, Non-Distended, No Hepato-splenomegaly Extremities: No edema, Capillary Refill Less than 3 Seconds Skin: No rashes, No breakdown Musculoskeletal: No Tenderness to Palpation of Joints or Extremities Neurological: Cranial nerves II-XII grossly intact, Motor Exam 5/5 strength throughout, Sensory exam intact to light touch and pain Psych/Mental Status: Normal Affect, Appropriate Assessment & Plan Assessment/Plan (1) Infectious mononucleosis: QUALIFIERS: Infectious mononucleosis etiology: unspecified organism Infectious mononucleosis complication: other complications Qualified Code(s): B27.99 - Infectious mononucleosis, unspecified with other complication (2) Acute hepatitis: (3) Acute dehydration: PLAN: Plan 1. Acute infectious mononucleosis hepatitis with hyperbilirubinemia ? Will await gastroenterology's evaluation ? Continue with supportive care ? LFTs are improving 2. Anxiety/depression ? Stable/continue with her home medications DVT: Heparin Charges/Coding Visit Charges Inpatient E&M: 32621 Subs Hosp L2
[2023-03-06 10:22] LABS: Prealbumin 4.3 mg/dL (20.0-40.0)
[2023-03-06 10:48] LABS: Pathologist Review Reviewed
[2023-03-06] MEDS: Ibuprofen 400 MG Tablet PO (11:39)
--- NOTE | 2023-03-06 12:45 | CASEMGMT ---
ARIS FITCH Assessment: Face to Face with pt for initial transition planning/care coordination assessment. RN CONSTANTINE introduced self and role at [facility], pt voices understanding and consents to assessment. Pt is A&O x4 and answers all questions appropriately at this time. Pt lying in bed in no distress with uncle and brother at bedside. Pt agreeable to assessment with family present. Care providers, pharmacy, and demographics verified/updated. Admitting Dx: severe acute infectious mononucleosis hepatitis PCP:[facility]: denies Preferred Pharmacy:[facility] Retail Insurance: [employer] Prescription Benefit: yes LNOK: Betty Martinez, father; oMuna Hampton, friend Living Arrangements: Pt lives with parents and 5 siblings in a two story home with 3 steps to enter. Pt reports she is I in ADL's and denies concerns at home. Transportation: Pt hires drivers if needed. DME:Denies HHC/SNF: Denies hx of Pt states no concerns with going home at time of dc. Pt states no further concerns/needs. CM to follow. Advised pt to ask CM if any further question/concerns/needs arise, voices understanding. Pt Goal: Home Plan: Home
[2023-03-06 14:02] VITALS: BP 95/54; PULSE 78; RESP 16; TEMP 36.6; O2SAT 97
--- NOTE | 2023-03-06 16:24 | EX.PCM.CON.G ---
HPI Consult Data Date of Consult: 03/06/23 HPI Narrative Reason for Consultation: Acute hepatitis with jaundice HPI Narrative: EDDIE DAMON, is a 17 F who [id number] F with a past medical history of depression with anxiety. She was recently diagnosed infectious mononucleosis hepatitis with a recent presentation to the ER here approximately three days ago. She returns to [facility] ER planing of continued jaundice and abdominal pain. She also complains of 5 days prior to admission with the abrupt onset of fatigue, malaise, generalized abdominal pain with decreased appetite and dehydration due to poor oral intake. Her mother informed the ER provider that she was formally diagnosed with mononucleosis hepatitis on March 02, 2023 and that her symptoms have not improved since that time. She also admits to intermittent fevers but she denies a history of liver injury due to Tylenol or other viral hepatitides. In the ER she was noted to have leukocytosis of 14.7 present on admission with moderate thrombocytopenia of 128 present on admission complicated by worsening acute liver inflammation evidenced by total bilirubin of 6.6 mg/dL (up from 3 mg/dL on 03/02/2023) along with transaminitis with AST of 453 U/L and ALT of 472 U/L (up from 402 U/L and 308 U/L respectively on 03/02/2023) and a normal INR of 1.1 present on admission with the ER provider recommending patient be admitted for IV fluids . Her INR was 1.1. Her liver enzymes are starting to improve. She had a CT scan abdomen pelvis that it showed mild splenomegaly without hepatomegaly. No signs of biliary obstruction, masses or suspicious infiltrative disease. She denied any Acetaminophen. She also denies any ibuprofen containing products or any [id number] pain medicine for intermittent fevers. Her acute viral hepatitis labs were all normal. Nonviral hepatitis labs are pending. [facility] Medical History Anxiety Depression Obesity Tobacco use Home Medications fluoxetine 40 mg capsule (Prozac) 60 mg PO DAILY depression 03/02/23 [History Last Taken 03/05/23] ondansetron 4 mg disintegrating tablet 4 mg PO Q6H PRN PRN Nausea #15 tabs 03/02/23 [Rx Last Taken Unknown] potassium chloride 20 mEq tablet,extended release 20 meq PO BID mineral #10 tabs 03/02/23 [Rx Last Taken 03/05/23] Allergy/AdvReac Type Severity Reaction Status Date / Time No Known Allergies Allergy Verified 03/02/23 02:06 Social History Smoking Status: Former smoker ROS ROS Narrative Review of systems: Constitutional: Patient admits to fevers, generalized weakness and malaise that is severe. Eyes: Patient denies visual changes but has obvious jaundice. ENT: Patient denies runny nose, ear pain or sore throat. Cardiovascular: Patient denies chest pain, chest pressure or palpitations. Respiratory: Patient denies shortness of breath or cough. Gastrointestinal: Patient admits to abdominal pain with nausea and very poor appetite. Genitourinary: Patient denies dysuria, hematuria or urinary frequency. Musculoskeletal: Patient admits to myalgias that are severe. Integumentary: Patient denies rash but has obvious jaundice. Neurologic: Patient admits to generalized tension type headache but denies paresthesias or focal neurologic weakness. Allergic: Patient denies lip swelling, tongue swelling or urticaria. Hematologic: Patient denies easy bleeding or easy bruisability. 14 point review systems otherwise negative except for positives noted above in HPI. Physical Exam Narrative General: Alert, Oriented x3, Cooperative, No apparent distress HEENT: Atraumatic, PERRLA, EOMI, Normocephalic Oral: Moist Mucosa Neck: Supple, No JVD Lungs: Clear to auscultation, Normal air movement, No rhonchi, No wheeze, No rales Cardiovascular: Tachycardic, Regular Rhythm, Normal S1, Normal S2, No murmurs Abdomen: Soft, tender, Non-Distended, No Hepato-splenomegaly Extremities: No edema, Capillary Refill Less than 3 Seconds Skin: No rashes, No breakdown Musculoskeletal: No Tenderness to Palpation of Joints or Extremities Neurological: Cranial nerves II-XII grossly intact, Motor Exam 5/5 strength throughout, Sensory exam intact to light touch and pain Psych/Mental Status: Normal Affect, Appropriate Lab / Micro Data 03/06/23 07:28 03/06/23 07:28 Labs: Laboratory Results - last 24 hr 03/05/23 20:00: WBC 14.7 H, RBC 4.47, Hgb 13.4, Hct 39.0, MCV 87.2, MCH 30.0, MCHC 34.4, RDW Std Deviation 41.6, RDW Coeff of [place] 13.1, Plt Count 128 L, MPV 10.6, Immature Gran % (Auto) 0.400, Neut % (Auto) 15.6 L, Lymph % (Auto) 72.7 H, [place] % (Auto) 10.3 H, Eos % (Auto) 0.6, Baso % (Auto) 0.4, Absolute Neuts (auto) 2.3, Absolute Lymphs (auto) 10.71 H, Nucleated RBC % 0, Differential Comment , Diff Path Review Reviewed, PT 14.1, INR 1.1, Sodium 134 L, Potassium 3.9, Chloride 101, Carbon Dioxide 26.0, Anion Gap 7, BUN 6 L, Creatinine 0.53 L, Estim Creat Clear Calc 153.63, Est GFR (MDRD) Af Amer 192, Est GFR (MDRD) Non-Af 158, BUN/Creatinine Ratio 11.4, Glucose 94, Calcium 8.5, Total Bilirubin 6.60 H, AST 453 H, ALT 472 H, Alkaline Phosphatase 281 H, Lactate Dehydrogenase 697 H, Total Creatine Kinase 20 L, C-React Prot Ext Range 41.60 H, Total Protein 7.0, Albumin 2.7 L, Globulin 4.3 H, Albumin/Globulin Ratio 0.6 L 03/05/23 21:10: ESR 7, Lactic Acid 1.7 03/06/23 07:28: WBC 10.9, RBC 3.78 L, Hgb 11.3 L, Hct 33.4 L, MCV 88.4, MCH 29.9, MCHC 33.8, RDW Std Deviation 43.2, RDW Coeff of [place] 13.2, Plt Count 100 L, MPV 10.1, Immature Gran % (Auto) 0.500, Neut % (Auto) 17.1 L, Lymph % (Auto) 76.9 H, [place] % (Auto) 3.5, Eos % (Auto) 1.0, Baso % (Auto) 1.0, Absolute Neuts (auto) 1.9 L, Absolute Lymphs (auto) 8.37 H, Nucleated RBC % 0, Differential Comment SCANNED, Reactive Lymphocytes 1+, PT 15.1 H, INR 1.2, APTT 33.1, Sodium 137, Potassium 4.0, Chloride 105, Carbon Dioxide 24.0, Anion Gap 8, BUN 5 L, Creatinine 0.46 L, Estim Creat Clear Calc 177.01, Est GFR (MDRD) Af Amer 222, Est GFR (MDRD) Non-Af 184, BUN/Creatinine Ratio 10.8, Glucose 86, Calcium 7.9 L, Phosphorus 2.4 L, Total Bilirubin 5.20 H, AST 372 H, ALT 384 H, Alkaline Phosphatase 235 H, Lactate Dehydrogenase 580 H, Total Protein 5.6 L, Albumin 2.1 L, Globulin 3.5, Albumin/Globulin Ratio 0.6 L, Prealbumin 4.3 L, TSH 1.63 Assessment & Plan Assessment/Plan (1) Infectious mononucleosis: QUALIFIERS: Infectious mononucleosis etiology: unspecified organism Infectious mononucleosis complication: other complications Qualified Code(s): B27.99 - Infectious mononucleosis, unspecified with other complication (2) Acute hepatitis: (3) Acute dehydration: PLAN: Plan 17-year-old with worsening abdominal pain, jaundice and was discovered to have cholestatic hepatitis after recent infection with 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 Severe acute infectious mononocleosis hepatitis with hyperbilirubinemia and hypertransaminasemia with leukocytosis of 14.7 and moderate thrombocytopenia of 128 present on Infrequently, individuals with primary EBV infection can present with an acute cholestatic hepatitis. Although the diagnosis is suggested by antibody testing, EBV PCR is a noninvasive laboratory test that helps in identifying primary EBV infection, especially in cases where the clinical presentation is atypical. We are waiting on EBV IgM, EBV in addition to EBV PCR RNA quantitative load. I suspect that her Her presumed EBV infection has not led to splenic sequestration and platelet consumption which has decreased her peripheral platelet count. She is not showing any signs of infection associated with cold inclusions as she is not having any other signs of hemolysis which can be associated with associated acute hepatitis. ?The incidence of clinically significant hemolysis in EBV infection is low, and most such cases are associated with cold agglutinins. Also the differential diagnosis for acute hepatitis with jaundice with. hepatitis in a young woman. For autoimmune.Blood work-itis and other autoimmune disease that would affect the liver are being checked as she could generate autoantibodies from an infection such as EBV associated hepatitis. Plan is to continue and monitor her. If she does not have a significant decrease in her platelet count and increase in her bilirubin, then she can be DC'd to home tomorrow with close follow-up. However she is high risk for continued thrombocytopenia and complications from that from an EBV associated hepatitis. Charges/Coding Visit Charges Inpatient E&M: 42442 Init Hosp L3
[2023-03-06 20:00] VITALS: BP 100/60; PULSE 84; RESP 16; TEMP 37.1; O2SAT 100
[2023-03-06 20:30] VITALS: O2SAT 97
[2023-03-07] MEDS: Lactated Ringers 1,000 ML 150 ML IV ×2 (02:20→09:07)
[2023-03-07 03:40] VITALS: BMI 32.5
[2023-03-07] MEDS: Ondansetron 4 MG/2 ML Vial IV (03:40)
[2023-03-07] MEDS: 0.9% Saline Lock 10 ML Syringe IV ×2 (03:41→13:57)
[2023-03-07 03:47] VITALS: BP 132/80; PULSE 102; RESP 16; TEMP 37.2; O2SAT 99
[2023-03-07 05:41] LABS: Absolute Lymphocyte Count 8.56 X10^3/uL (0.83-4.51); Absolute Neutrophil Count 1.9 X10^3/uL (2.0-7.7); Basophil# 0.06 X10^3/uL; Basophil% 0.5 % (0-1); Eosinophil# 0.11 X10^3/uL; Hematocrit 33.5 % (37-47); Lymphocyte # 8.56 X10^3/ul (0.83-4.51); Lymphocyte % 76.5 % (19-41); Mean Corp Hgb Conc 32.8 g/dL (32-36); Mean Corpuscular Hgb 29.4 pg (27.0-32.0); Mean Corpuscular Volume 89.6 fL (81-99); Monocyte# 0.43 X10^3/uL; Monocyte% 3.8 % (0-10); NRBC Flagged by Analyzer 0 % (0-5); Neutrophil # 1.94 X10^3/uL (2.7-7.7); Neutrophil % 17.4 % (47-70); POSITIVE DIFFERENTIAL YES; POSITIVE MORPHOLOGY YES; Platelet Count 109 K/mm3 (150-450); RBC Distribution Width CV 13.3 % (11.6-14.6); RBC Distribution Width SD 44.1 fl (35.1-43.9); Red Blood Count 3.74 M/mm3 (4.2-5.4); White Blood Count 11.2 K/mm3 (4.4-11.0)
[2023-03-07 06:01] LABS: Differential Indicated SCAN CRITERIA MET
[2023-03-07] MEDS: Heparin Injection (Vial) 5,000 UNIT/ML VIAL 5000 UNIT SC ×2 (06:23→13:56)
[2023-03-07 06:24] LABS: ALB/GLOB Ratio 0.6 RATIO (0.9-2.4); AST(SGOT) 354 U/L (15-37); Alanine Aminotransfer ALT/SGPT 391 U/L (13-56); Albumin, Serum 2.2 g/dL (3.2-5.0); Alkaline Phosphatase 265 U/L (45-117); Anion Gap 6 (5-15); BUN 4 mg/dL (7-18); BUN/Creat Ratio 11.1 RATIO (10-20); Calcium,Total 7.7 mg/dL (8.5-10.1); Chloride 106 mmol/L (98-107); Creatinine, Serum 0.36 mg/dL (0.55-1.02); EST Glomerular Filtration Rate 245 mL/min (>60); Est Glom Filt Rate - Afr Amer 296 mL/min (>60); Estimated Creatinine Clearance 226.17 ml/min; Globulin 3.6 g/dL (2.2-4.2); Glucose 92 mg/dL (74-106); Potassium 3.7 mmol/L (3.5-5.1); Protein, Total 5.8 g/dL (6.4-8.2); Sodium Level 137 mmol/L (136-145)
[2023-03-07 07:02] LABS: Atypical Lymphocyte 1+ %; Differential Comment SCANNED; Reactive Lymphocyte 1+
[2023-03-07 08:16] VITALS: O2SAT 95
[2023-03-07] MEDS: FLUoxetine 20 MG Capsule 60 MG PO (09:18)
[2023-03-07] MEDS: Ensure Clear 120 ML Liquid PO (09:18)
[2023-03-07 09:31] VITALS: BP 108/64; PULSE 95; RESP 16; TEMP 37.2; O2SAT 98
--- NOTE | 2023-03-07 11:54 | DCINST_ITS ---
Discharge Instructions Diet Discharge Diet: No restrictions Activity Discharge Activity: Return to Normal Activity Dressing / Incision Call your doctor if you observe: Fever of 101 or Higher, Shortness of breath, Dizziness, Fainting spells, Swelling in the ankles, Chest pain and Increased palpitations (irregular heartbeat) Follow Up Care Test Results: Test results from this visit will be discussed in further detail at your follow- up appointment, if applicable. Discharge Plan Admission Admit Date/Time: 03/05/23 21:49 Attending Provider: Phil Veronica Primary Care Provider: Christopher Hampton Consulting Providers: Gabriel Rudolph Discharge Orders/Prescriptions Prescriptions: Continued fluoxetine [Prozac] 40 mg capsule 60 mg PO DAILY potassium chloride 20 mEq tablet extended release 20 meq PO BID Qty: 10 0RF ondansetron 4 mg tablet,disintegrating 4 mg PO Q6H PRN PRN (Reason: Nausea) Qty: 15 0RF Referrals / Follow Up: Christopher Hampton DO [Primary Care Provider] - Within 1 Week FriendBrett DO [Med Staff - Active Staff] - Within 2 Weeks Disposition Disposition (needs filled in before D/C Order can be placed): Home, Self Care
--- NOTE | 2023-03-07 12:00 | PN.GI_ITS ---
Subjective Subjective Patient is a better today. She was able to tolerate a normal diet. Objective Data Objective Data Vital Signs: Vital Signs Temp Pulse Resp BP Pulse Ox O2 Del Method 98.1 F 77 16 110/76 99 Room Air 03/07/23 15:20 03/07/23 15:20 03/07/23 15:20 03/07/23 15:20 03/07/23 15:20 03/07/23 15:20 Oxygen Delivery Method Room Air Weight: 195 lb 8.8 oz Body Mass Index (BMI) 32.5 Intake & Output: Intake and Output for Last 24 Hours 03/05/23 03/06/23 03/07/23 23:59 23:59 23:59 Intake Total 1999 2960 / 2960 2792.5 / 2792.5 Output Total 600 / 600 Balance 1999 2360 / 2360 2792.5 / 2792.5 Lab / Micro Data 03/07/23 04:40 03/07/23 04:40 Labs: Laboratory Results - last 24 hr 03/05/23 21:10: KAYLA-1 Antibody <0.2, SS-A/Ro IgG Antibody < 0.2, SS-B/La IgG Antibody < 0.2, Sm (L[place]iza) Antibody <0.2, DRYING ROOM OPERATOR Antibody <0.2, Scl-70 Scleroderma Ab <0.2, Double Strand DNA Ab 12 H, Centromere B Antibody <0.2, Anti- Mitochondrial Ab <20.0, Anti-Smooth Muscle Ab 40 H 03/07/23 04:40: WBC 11.2 H, RBC 3.74 L, Hgb 11.0 L, Hct 33.5 L, MCV 89.6, MCH 29.4, MCHC 32.8, RDW Std Deviation 44.1 H, RDW Coeff of Shaneka 13.3, Plt Count 109 L, MPV 10.0, Immature Gran % (Auto) 0.800, Neut % (Auto) 17.4 L, Lymph % (Auto) 76.5 H, [place] % (Auto) 3.8, Eos % (Auto) 1.0, Baso % (Auto) 0.5, Absolute Neuts (auto) 1.9 L, Absolute Lymphs (auto) 8.56 H, Nucleated RBC % 0, Differential Comment SCANNED, Atypical Lymphocytes 1+, Reactive Lymphocytes 1+, Sodium 137, Potassium 3.7, Chloride 106, Carbon Dioxide 25.0, Anion Gap 6, BUN 4 L, Creatinine 0.36 L, Estim Creat Clear Calc 226.17, Est GFR (MDRD) Af Amer 296, Est GFR (MDRD) Non-Af 245, BUN/Creatinine Ratio 11.1, Glucose 92, Calcium 7.7 L, Total Bilirubin 4.80 H, AST 354 H, ALT 391 H, Alkaline Phosphatase 265 H, Total Protein 5.8 L, Albumin 2.2 L, Globulin 3.6, Albumin/Globulin Ratio 0.6 L Physical Exam Narrative General: Alert, Oriented x3, Cooperative, No apparent distress HEENT: Atraumatic, PERRLA, EOMI, Normocephalic Oral: Moist Mucosa Neck: Supple, No JVD Lungs: Clear to auscultation, Normal air movement, No rhonchi, No wheeze, No rales Cardiovascular: Tachycardic, Regular Rhythm, Normal S1, Normal S2, No murmurs Abdomen: Soft, tender, Non-Distended, No Hepato-splenomegaly Extremities: No edema, Capillary Refill Less than 3 Seconds Skin: No rashes, No breakdown Musculoskeletal: No Tenderness to Palpation of Joints or Extremities Neurological: Cranial nerves II-XII grossly intact, Motor Exam 5/5 strength throughout, Sensory exam intact to light touch and pain Psych/Mental Status: Normal Affect, Appropriate Assessment & Plan Assessment/Plan (1) Infectious mononucleosis: QUALIFIERS: Infectious mononucleosis etiology: unspecified organism Infectious mononucleosis complication: other complications Qualified Code(s): B27.99 - Infectious mononucleosis, unspecified with other complication (2) Acute hepatitis: (3) Acute dehydration: PLAN: Plan 17-year-old with worsening abdominal pain, jaundice and was discovered to have cholestatic hepatitis after recent infection with 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 Severe acute infectious mononocleosis hepatitis with hyperbilirubinemia and hypertransaminasemia with leukocytosis of 14.7 and moderate thrombocytopenia of 128 present on Infrequently, individuals with primary EBV infection can present with an acute cholestatic hepatitis. Although the diagnosis is suggested by antibody testing, EBV PCR is a noninvasive laboratory test that helps in identifying primary EBV infection, especially in cases where the clinical presentation is atypical. We are waiting on EBV IgM, EBV in addition to EBV PCR RNA quantitative load. I suspect that her Her presumed EBV infection has not led to splenic sequestration and platelet consumption which has decreased her peripheral platelet count. She is not showing any signs of infection associated with cold inclusions as she is not having any other signs of hemolysis which can be a ssociated with associated acute hepatitis. ?The incidence of clinically significant hemolysis in EBV infection is low, and most such cases are associated with cold agglutinins. Also the differential diagnosis for acute hepatitis with jaundice with. hepatitis in a young woman. For autoimmune.Blood work-itis and other autoimmune disease that would affect the liver are being checked as she could generate autoantibodies from an infection such as EBV associated hepatitis. Plan is to continue and monitor her. If she does not have a significant decrease in her platelet count and increase in her bilirubin, then she can be DC'd to home tomorrow with close follow-up. However she is high risk for continued thrombocytopenia and complications from that from an EBV associated hepatitis. 03/07-her white blood cell count is mildly elevated. She is not. Her smooth muscle antibody back to 2 times upper limit of normal and also her double- stranded DNA is positive. LFTs continue to go down. I am still suspecting that this is all viral related. However she may need a liver biopsy and needs close follow-up if she is going to be DC'd home today. Charges/Coding Visit Charges Inpatient E&M: 69609 Subs Hosp L3
--- NOTE | 2023-03-07 12:36 | DS.PCM_ITS ---
Providers Date of Admission: 03/05/23 Primary Care Physician: Dr. Christopher Hampton, Reason For Visit: SEVERE ACUTE INFECTIOUS MONONUCLEOSIS HEPATITIS Diagnosis Discharge Diagnosis (1) Infectious mononucleosis: Status: Acute Code(s): B27.90 - Infectious mononucleosis, unspecified without complication Qualifiers: Infectious mononucleosis etiology: unspecified organism Infectious mononucleosis complication: other complications Qualified Code(s): B27.99 - Infectious mononucleosis, unspecified with other complication (2) Acute hepatitis: Status: Acute Code(s): B17.9 - Acute viral hepatitis, unspecified (3) Acute dehydration: Status: Acute Code(s): E86.0 - Dehydration Medications at Discharge Home Medications fluoxetine 40 mg capsule (Prozac) 60 mg PO DAILY depression 03/02/23 ondansetron 4 mg disintegrating tablet 4 mg PO Q6H PRN PRN Nausea #15 tabs 03/02/23 potassium chloride 20 mEq tablet,extended release 20 meq PO BID mineral #10 tabs 03/02/23 Hospital Course Operations None Procedures None Summary of Care Provided Minutes Spent on Discharge: 34 Hospital Course: Per HPI: EDDIE DAMON, is a 17 F with a past medical history of tobacco abuse, obesity; with BMI of 32.8 this admission, depression with anxiety and recently diagnosed infectious mononucleosis hepatitis with a recent admission to the ER here approximately three days ago who re-presents to the [facility] ER planing of continued jaundice and abdominal pain. Ms. Damon reports her's began approximately 5 days prior to admission with the abrupt onset of fatigue, malaise, generalized abdominal pain with decreased appetite and dehydration due to poor oral intake. Her mother informed the ER provider that she was formally diagnosed with mononucleosis hepatitis on March 02, 2023 and that her symptoms have not improved since that time. She also admits to intermittent fevers but she denies a history of liver injury due to Tylenol or other viral hepatitides. In the ER she was noted to have leukocytosis of 14.7 present on admission with moderate thrombocytopenia of 128 present on admission complicated by worsening acute liver inflammation evidenced by total bilirubin of 6.6 mg/dL (up from 3 mg/dL on 03/02/2023) along with hyper transaminasemia with AST of 453 U/L and ALT of 472 U/L (up from 402 U/L and 308 U/L respectively on 03/02/2023) and a normal INR of 1.1 present on admission with the ER provider recommending patient be admitted for IV fluids and possible steroid treatment after they conferred with Dr. Rangel of gastroenterology whose help is greatly appreciated. She was then admitted to the general medical floor for ongoing care for stay that is expected to be greater than 48 hours. Hospital Course: 1. Acute infectious mononucleosis hepatitis with hyperbilirubinemia?17-year-old female with fevers, headaches, and dehydration with nausea and vomiting prese nted to the hospital with worsening symptoms and worsening jaundice, her bilirubin did peak at around 6.6 and now down to 4.8 also her LFTs are trending downwards as well and she is not having significant abdominal pain. She did present to the ED on 03/02/2023 and was discharged home, her monoscreen at that time was positive and today she has atypical lymphocytes also consistent with EBV. In discussion with gastroenterology, since her lab work is improving that she would be stable for discharge with close outpatient follow-up. I discussed with her and her mother the plan for possible discharge today and they both expressed understanding of the risk benefits of going home and would like to go home today. I do recommend that they follow-up with her PCP as well as gastroenterology as an outpatient. We discussed the fact that multiple studies are still pending and will be several days before these results are back. Physical Exam Narrative General: Alert, Oriented x3, Cooperative, No apparent distress HEENT: Atraumatic, PERRLA, EOMI, Normocephalic Oral: Moist Mucosa Neck: Supple, No JVD Lungs: Clear to auscultation, Normal air movement, No rhonchi, No wheeze, No rales Cardiovascular: Tachycardic, Regular Rhythm, Normal S1, Normal S2, No murmurs Abdomen: Soft, tender, Non-Distended, No Hepato-splenomegaly Extremities: No edema, Capillary Refill Less than 3 Seconds Skin: No rashes, No breakdown Musculoskeletal: No Tenderness to Palpation of Joints or Extremities Neurological: Cranial nerves II-XII grossly intact, Motor Exam 5/5 strength throughout, Sensory exam intact to light touch and pain Psych/Mental Status: Normal Affect, Appropriate Weight / BMI Weight Weight: 195 lb 8.8 oz Body Mass Index (BMI) 32.5 ABG / Lab / Microbiology Data 03/07/23 04:40 03/07/23 04:40 Laboratory: Laboratory Results - last 24 hr 03/07/23 04:40: WBC 11.2 H, RBC 3.74 L, Hgb 11.0 L, Hct 33.5 L, MCV 89.6, MCH 29.4, MCHC 32.8, RDW Std Deviation 44.1 H, RDW Coeff of Shaneka 13.3, Plt Count 109 L, MPV 10.0, Immature Gran % (Auto) 0.800, Neut % (Auto) 17.4 L, Lymph % (Auto) 76.5 H, [place] % (Auto) 3.8, Eos % (Auto) 1.0, Baso % (Auto) 0.5, Absolute Neuts (auto) 1.9 L, Absolute Lymphs (auto) 8.56 H, Nucleated RBC % 0, Differential Comment SCANNED, Atypical Lymphocytes 1+, Reactive Lymphocytes 1+, Sodium 137, Potassium 3.7, Chloride 106, Carbon Dioxide 25.0, Anion Gap 6, BUN 4 L, Creatin ine 0.36 L, Estim Creat Clear Calc 226.17, Est GFR (MDRD) Af Amer 296, Est GFR (MDRD) Non-Af 245, BUN/Creatinine Ratio 11.1, Glucose 92, Calcium 7.7 L, Total Bilirubin 4.80 H, AST 354 H, ALT 391 H, Alkaline Phosphatase 265 H, Total Protein 5.8 L, Albumin 2.2 L, Globulin 3.6, Albumin/Globulin Ratio 0.6 L D/C Instructions Discharge Diet: No restrictions Call your doctor if you observe: Fever of 101 or Higher, Shortness of breath, Dizziness, Fainting spells, Swelling in the ankles, Chest pain and Increased palpitations (irregular heartbeat) Meaningful Use Info Meaningful Use Diagnoses (Choose all that apply): None applicable Discharge Plan Admission Admit Date/Time: 03/05/23 21:49 Attending Provider: Phil Veronica Primary Care Provider: Christopher Hampton Consulting Providers: Gabriel Rudolph Discharge Orders/Prescriptions Prescriptions: Continued fluoxetine [Prozac] 40 mg capsule 60 mg PO DAILY potassium chloride 20 mEq tablet extended release 20 meq PO BID Qty: 10 0RF ondansetron 4 mg tablet,disintegrating 4 mg PO Q6H PRN PRN (Reason: Nausea) Qty: 15 0RF Referrals / Follow Up: Christopher Hampton DO [Primary Care Provider] - Within 1 Week FriendBrett DO [Med Staff - Active Staff] - Within 2 Weeks Disposition Disposition (needs filled in before D/C Order can be placed): Home, Self Care Charges/Coding Visit Charges Inpatient E&M: 47959 Disch Hosp >30min
[2023-03-07 14:09] LABS: Anti-Centromere B Ab <0.2 AI (0.0-0.9); Anti-Chromatin <0.2 AI (0.0-0.9); Anti-Jo <0.2 AI (0.0-0.9); Anti-Mitochondrial AB <20.0 Units (0.0-20.0); Anti-Scleroderma-70 AB <0.2 AI (0.0-0.9); Anti-Smooth Muscle ABS 40 Units (0-19); Anti-dsDNA Ab 12 IU/mL (0-9); RNP Ab <0.2 AI (0.0-0.9); SJOGREN'S Anti-SS-A test < 0.2 AI (0.0-0.9); SJOGREN'S Anti-SS-B test < 0.2 AI (0.0-0.9); Smith Ab <0.2 AI (0.0-0.9)
[2023-03-07 15:20] VITALS: BP 110/76; PULSE 77; RESP 16; TEMP 36.7; O2SAT 99
[2023-03-13 15:07] LABS: CMV by PCR Negative (Negative); PARVOVIRUS B19 IGG 0.5 index (0.0-0.8); PARVOVIRUS B19 IGM 0.7 index (0.0-0.8)
== END 2023-03-07 19:27 | disposition home or self-care (01) | DRG 866 ==
LOC: ED 20:17 → MS3 22:49
PROVIDERS: Internal Medicine Gastroenterology; Physician Assistant; Admitting Provider Internal Medicine; Emergency Provider Emergency Medicine; PCP Family Medicine; Visit Provider Family Medicine
DX: B27.99 Infectious mononucleosis, unspecified with other complication (principal); R17 Unspecified jaundice; B17.9 Acute viral hepatitis, unspecified; D69.6 Thrombocytopenia, unspecified; E88.09 Other disorders of plasma-protein metabolism, not elsewhere classified; E86.0 Dehydration; F32.A Depression, unspecified; F41.9 Anxiety disorder, unspecified; F17.290 Nicotine dependence, other tobacco product, uncomplicated; Z79.899 Other long term (current) drug therapy
CPT/HCPCS: 36415; 80053; 82550; 83516; 83605; 83615; 84100; 84134; 84443; 85025; 85610; 85652; 85730; 86140; 86225; 86235; 86747; 87496; 94668; 97802; 99284; 99406; J7030; J7120; A4216; J2405

== ENCOUNTER → 2023-04-11 | Outpatient (CLI) | payer OTHER, SELFPAY ==
--- OUTSIDE RECORDS SUMMARY | 2023-04-11 08:16 | XMS RPT_ITS | CCD ---
Author Name Unknown Address [address] [place] [address] Organization [facility] Care Team Providers Care Rental Clerk Name Role Phone DR MEY POOLE Admitting Unavailable SHELLEY FISHER Referring Unavailable SHELLEY FISHER Consulting Unavailable DR MEY POOLE Attending Unavailable DR MEY POOLE Primary Care Unavailable PROVIDER, UNKNOWN Consulting Unavailable Results Test Name Value Interpretation Reference Range Facil ity Encounters Encounter Date Encounter Type Care Provider Facility Start: 01-02-2022 End: 01-02-2022 Emergency department patient visit DR MEY POOLE [facility] Payers Date Payer Category Payer Unknown [id number] Unknown [id number] Unknown 131 Summary Purpose Family History No Family History Records Found Advance Directives No Advanced Directives Records Found Additional Source Comments INFORMATION SOURCE (unrecogn ized section and content) FOR RECORDS PERTAINING TO PATIENTS WHO ARE OR HAVE BEEN ENROLLED IN A CHEMICAL DEPENDENCY/SUBSTANCEABUSE PROGRAM, SOME INFORMATION MAY BE OMITTED. This clinical summary was aggregated from multiple sources. Caution should be exercised in using it in the provision of clinical care. This summary normalizes information from multiple sources, and as a consequence, information in this document may materially change the coding, format and clinical context of patient data. In addition, data may be omitted in some cases. CLINICAL DECISIONS SHOULD BE BASED ON THE PRIMARY CLINICAL RECORDS. [employer] provides no warranty or guarantee of the accuracy or completeness of information in this document.
[2023-04-11 09:05] LABS: Erythrocyte Sedimentation Rate 7 mm/hr (0-30)
[2023-04-11 09:06] LABS: Absolute Lymphocyte Count 1.84 X10^3/uL (0.83-4.51); Absolute Neutrophil Count 1.3 X10^3/uL (2.0-7.7); Basophil# 0.04 X10^3/uL; Eosinophil# 0.19 X10^3/uL; Eosinophils% 4.9 % (0-5); Hematocrit 36.8 % (37-47); Hemoglobin 12.3 g/dL (12.0-15.0); Lymphocyte # 1.84 X10^3/ul (0.83-4.51); Lymphocyte % 47.5 % (19-41); Mean Corp Hgb Conc 33.4 g/dL (32-36); Mean Corpuscular Hgb 29.4 pg (27.0-32.0); Mean Corpuscular Volume 87.8 fL (81-99); Mean Platelet Vol. 9.3 fl (6.2-12.0); Monocyte# 0.45 X10^3/uL; Monocyte% 11.6 % (0-10); NRBC Flagged by Analyzer 0 % (0-5); Neutrophil # 1.34 X10^3/uL (2.7-7.7); Neutrophil % 34.7 % (47-70); Platelet Count 237 K/mm3 (150-450); RBC Distribution Width CV 12.4 % (11.6-14.6); RBC Distribution Width SD 39.4 fl (35.1-43.9); Red Blood Count 4.19 M/mm3 (4.2-5.4); White Blood Count 3.9 K/mm3 (4.4-11.0)
[2023-04-11 09:23] LABS: ALB/GLOB Ratio 0.9 RATIO (0.9-2.4); AST(SGOT) 37 U/L (15-37); Alanine Aminotransfer ALT/SGPT 90 U/L (13-56); Albumin, Serum 3.4 g/dL (3.2-5.0); Alkaline Phosphatase 69 U/L (45-117); Anion Gap 2 (5-15); BUN 14 mg/dL (7-18); CRP < 2.90 mg/L (0.0-3.0); Calcium,Total 9.1 mg/dL (8.5-10.1); Chloride 107 mmol/L (98-107); Creatinine, Serum 0.67 mg/dL (0.55-1.02); EST Glomerular Filtration Rate 121 mL/min (>60); Est Glom Filt Rate - Afr Amer 146 mL/min (>60); Ferritin 21 ng/mL (8-252); Globulin 3.8 g/dL (2.2-4.2); Glucose 96 mg/dL (74-106); LDH 178 U/L (84-246); Protein, Total 7.2 g/dL (6.4-8.2); Sodium Level 135 mmol/L (136-145)
[2023-04-11 09:28] LABS: Partial Thromboplast Time 26.8 Seconds (24.1-36.2)
[2023-04-11 09:31] LABS: Prothrombin Time (Protime)PT. 13.6 SECONDS (11.7-14.9)
[2023-04-12 18:08] LABS: Anti-Mitochondrial AB <20.0 Units (0.0-20.0)
[2023-04-18 00:07] LABS: Angiotensin Convert Enzyme 108 U/L (14-82); CMV Acute Antibody IgM < 30.0 AU/mL (0.0-29.9); CMV Antibody IgG > 10.00 U/mL (0.00-0.59); Ceruloplasmin 27.2 mg/dL (19.0-39.0); Copper, Serum or Plasma 117 ug/dL (80-158); EBV Acute VCA IgM 60.9 U/mL (0.0-35.9); EBV Nuclear Antigen IgG < 18.0 U/mL (0.0-17.9); EBV-VCA IgG 69.1 U/mL (0.0-17.9); Endomysial Antibody IgA Negative (Negative); IgG, Quant 1482 mg/dL (719-1475); Immunoglobulin A 272 mg/dL (87-352); Immunoglobulin G, Subclass 1 871 mg/dL (325-846); Immunoglobulin G, Subclass 2 293 mg/dL (133-509); Immunoglobulin G, Subclass 3 204 mg/dL (19-109); Immunoglobulin G, Subclass 4 38 mg/dL (3-104); t-Transglutaminase IgA <2 U/mL (0-3)
== END | disposition home or self-care (01) ==
PROVIDERS: PCP Family Medicine; Referring Provider Internal Medicine Gastroenterology; Visit Provider Internal Medicine Gastroenterology
DX: B27.90 Infectious mononucleosis, unspecified without complication (principal); B17.9 Acute viral hepatitis, unspecified
CPT/HCPCS: 36415; 80053; 82164; 82390; 82525; 82728; 82784; 82787; 83516; 83615; 85025; 85610; 85652; 85730; 86140; 86255; 86644; 86645; 86664; 86665

== ENCOUNTER 2023-04-15 20:55 | Emergency (ER) | payer OTHER, SELFPAY ==
[2023-04-15 20:59] VITALS: BP 115/66; PULSE 79; RESP 16; TEMP 36.6; O2SAT 99; BMI 31.3
[2023-04-15 21:03] VITALS: BP 115/66; PULSE 72; RESP 16; TEMP 36.2; O2SAT 99
[2023-04-15 22:08] VITALS: BP 106/68; PULSE 73; RESP 12; O2SAT 98
[2023-04-15 22:23] VITALS: BP 110/69; PULSE 81; RESP 16; TEMP 36.8; O2SAT 98
--- NOTE | 2023-04-15 22:36 | EDS_ITS ---
HPI HPI - GI History of Present Illness Chief Complaint: GI Bleed Informant: patient Narrative Narrative: Patient is a 17-year-old female with recent diagnosis of mononucleosis and subsequent hepatitis following with Dr. Rangel presenting for concerns of bright red blood per rectum as well as worsening abdominal pain. Chart review shows that patient was admitted at [facility] 03/05 through 03/07 for management of acute hepatitis and infectious mononucleosis. CT of the abdomen pelvis on 03/02 showed hepatic steatosis and mild splenomegaly. Is continue to have constipation with hard stools and left upper quadrant abdominal pain. She is also in the process of being worked up for an autoimmune hepatitis by GI. Patient notes that on Friday, 04/12 (3 days ago) she was having a bowel movement which was hard and she was straining. She started to notice bright red blood in the toilet bowl. She notes that she has had continued and worsening bleeding with bowel movements since. She notes she has not a look at it too much because it grosses her out but does not think she seen any clots. Did not take a picture of it. Notes that she has been feeling dizzy this morning and has had intermittent nausea but no vomiting. She is continued to have a lot of fatigue but attributes that to her mono. She also notes that yesterday she bumped into his stool and has had increased pain in her left upper quadrant. She is worried about her spleen. Denies any recent fevers. Has had a sore throat and siblings at home have had similar sore throat/URI symptoms. Patient denies any significant cough. Denies any difficulty breathing just that she gets winded easily. No other complaints or concerns at this time. [facility] Medical History Anxiety Depression Hepatitis Obesity Tobacco use Home Medications fluoxetine 40 mg capsule (Prozac) 60 mg PO DAILY depression 03/02/23 [History Last Taken 03/05/23] calcium carbonate 600 mg calcium (1,500 mg) tablet (Calcium) 600 mg PO DAILY 04/11/23 [History Last Taken Unknown] magnesium 250 mg tablet 250 mg PO DAILY 04/11/23 [History Last Taken Unknown] trazodone 50 mg tablet 50 mg PO QHS PRN sleep 04/11/23 [History Last Taken Unknown] Allergy/AdvReac Type Severity Reaction Status Date / Time No Known Allergies Allergy Verified 04/15/23 20:58 Family History Grandmother Diabetes Father Embolus Grandfather Myocardial infarction Social History Smoking Status: Current some day smoker tobacco type: cigarettes alcohol intake: never substance use type: does not use ROS ROS ED Constitutional Constitutional ED: Denies chills or fever(s) ENT ENT ED: Reports sore throat; Denies rhinorrhea Cardiovascular Cardiovascular: Denies chest pain Respiratory/Chest Respiratory/Chest: Denies cough or dyspnea Gastrointestinal Gastrointestinal: Reports abdominal pain, constipation, nausea and other Details: BRBPR ; Denies vomiting Genitourinary Genitourinary ED: Reports dysuria; Denies hematuria or urinary frequency Musculoskeletal Musculoskeletal: Denies arthralgias or myalgias Integumentary Denies rash Neurologic Neurologic: Denies headache(s) or weakness Hematologic/Lymphatic Hematologic/Lymphatic: Denies easy bleeding or easy bruising EXAM Physical Exam Const Vital Signs: 04/15/23 20:59 04/15/23 21:03 04/15/23 22:08 Temperature 97.8 F 97.2 F L Temperature Source Temporal Temporal Pulse Rate 79 72 73 Respiratory Rate 16 16 12 Respiratory Pattern Blood Pressure 115/66 115/66 106/68 Blood Pressure Mean 82 82 80 Pulse Ox 99 99 98 Oxygen Delivery Method Room Air 04/15/23 22:09 04/15/23 22:23 Temperature 98.3 F Temperature Source Temporal Pulse Rate 81 Respiratory Rate 16 Respiratory Pattern Normal Blood Pressure 110/69 Blood Pressure Mean 82 Pulse Ox 98 Oxygen Delivery Method Room Air Positive well nourished and well developed General Appearance ED: well developed and NAD; Negative for pallor HEENT Reports moist mucous membranes HEENT Narrative: Normal oropharynx normocephalic and atraumatic Eyes PERRL General Eye ED: Negative for pale conjunctiva or scleral icterus Neck supple Resp normal respiratory effort and clear to auscultation bilaterally Cardio regular rate, regular rhythm and no murmurs GI non-distended GI Narrative: On rectal exam I do not appreciate any fissures or external hemorrhoids. There is some trace red blood on internal rectal exam mixed with mucus. Auscultation: normoactive bowel sounds Palpation: soft and tender LUQ; Negative for guarding or rigid Back/Spine no CVA tenderness Neuro moves all extremities Sensorium / Orientation: alert, oriented to person, oriented to place and oriented to time Motor Exam: Negative for general weakness Psych mental status grossly normal and thought process normal Skin no wounds General Skin Exam: Negative for jaundice or pallor MDM MDM MDM Narrative Medical decision making narrative: Patient is evaluated for bright red blood per rectum as well as increased upper quadrant abdominal pain and sore throat. Past medical history pertinent for recent mono with subsequent hepatitis. Patient is overall well-appearing but looks like she does not feel good and nontoxic. Her vital signs are normal. Will obtain lab work including liver enzymes, coags, CBC, lipase and also CT of the abdomen pelvis as she is having increased upper quadrant pain is at increased risk of splenic rupture. Stool occult is sent however differentials are broad and will check CBC to make sure she does not have signs of acute anemia however given her recent constipation suspect more of a internal hemorrhoid as a cause of her bleeding. Lab work remarkably normal. Her hemoglobin is stable at 12.9 with normal platelets. Her transaminitis has resolved. She has a normal BUN to low suspicion for brisk upper GI bleed. She has no bleeding while in the emergency room. Urinalysis is negative for signs of infection. CT abdomen pelvis does not show any acute process but does show continued splenomegaly. No signs of laceration. Patient will be discharged home. I suspect she has internal hemorrhoids likely associate with his recent constipation. Is currently on ClearLax to help with this. Counseled that if she is not having significant improvement might need to increase the dosage of that. Mother agrees with this. Will send a message to her GI doctor, Dr. Rangel about outpatient follow-up and workup in the ER. Mother also counseled to call the office tomorrow to arrange for outpatient GI follow-up. At this time I do not think patient requires admission will be discharged home. Differential diagnosis?internal hemorrhoids, fissure (less likely based on physical exam), AVM, brisk upper GI bleed, UTI, splenic laceration, acute intra- abdominal abnormality Lab Data Labs: Laboratory Results - last 24 hr 04/15/23 04/15/23 22:18 23:46 WBC 4.3 L RBC 4.40 Hgb 12.9 Hct 38.8 MCV 88.2 MCH 29.3 MCHC 33.2 RDW Std Deviation 38.9 RDW Coeff of Shaneka 12.1 Plt Count 227 MPV 9.3 Immature Gran % (Auto) 0.000 Neut % (Auto) 31.1 L Lymph % (Auto) 56.0 H Davis % (Auto) 10.1 H Eos % (Auto) 2.1 Baso % (Auto) 0.7 Absolute Neuts (auto) 1.3 L Absolute Lymphs (auto) 2.38 Nucleated RBC % 0 PT 13.5 INR 1.0 APTT 25.6 Sodium 138 Potassium 3.9 Chloride 109 H Carbon Dioxide 26.0 Anion Gap 3 L BUN 9 Creatinine 0.64 Estim Creat Clear Calc 152.55 Est GFR (MDRD) Af Amer 154 Est GFR (MDRD) Non-Af 127 BUN/Creatinine Ratio 14.2 Glucose 94 Calcium 9.1 Total Bilirubin 0.50 Direct Bilirubin 0.21 AST 21 ALT 52 Alkaline Phosphatase 63 Total Protein 7.2 Albumin 3.6 Globulin 3.6 Lipase 48 Urine Color Yellow Urine Clarity Clear Urine pH 6.0 Ur Specific [place] 1.010 Urine Protein Negative Urine Glucose (UA) Normal Urine Ketones Negative Urine Occult Blood Negative Urine Nitrite Negative Urine Bilirubin Negative Urine Urobilinogen Normal Ur Leukocyte Esterase 25 H Urine RBC 0 SEEN Urine WBC 0 SEEN Ur Squamous Epith Cells 0-5 SEEN Urine Bacteria 0 SEEN Urine Mucus 0 SEEN Urine Test Negative Blood Type B POSITIVE Antibody Screen NEGATIVE Radiography Diagnostic Testing: Clinical Impression(s) from Imaging Studies Abdomen/Pelvis CT 04/16/23 22:33 IMPRESSION: * No acute findings in the abdomen or pelvis. * Stable size and appearance of the mildly enlarged spleen which measures up to 13.7 cm long axis. No evidence of splenic laceration or rupture. Electronically Signed: Gabriel Elam MD at 1:25 EST Reading Location ID and State: [facility] / [place] Tel , Service support , Discharge Plan Triage Chief Complaint: GI Bleed ED Provider: Louann Leslie Dx/Rx/DC Orders Clinical Impression: Splenomegaly, BRBPR (bright red blood per rectum) Instructions: ED Hemorrhoids, ED Lower GI Bleeding (Stable) Prescriptions: No Action trazodone 50 mg tablet 50 mg PO QHS PRN (Reason: sleep) calcium carbonate [Calcium 600] 600 mg calcium (1,500 mg) tablet 600 mg PO DAILY magnesium 250 mg tablet 250 mg PO DAILY fluoxetine [Prozac] 40 mg capsule 60 mg PO DAILY Primary Care Provider: Christopher Hampton Referrals: Christopher Hampton DO [Primary Care Provider] - Friend,Brett, DO [Med Staff - Active Staff] - As soon as possible Activity Restrictions/Additional Instructions: I suspect the bleeding is associated with her constipation. Is possible it could be an internal hemorrhoid. Please continue to take the [id number] ClearLax to help with the constipation. You might need to increase the dose or add in something like senna (a laxative) to help you get things moving for the short-term. Please follow-up outpatient with your GI doctor. Return if your symptoms progress or worsen or if you have further concerns however at this time lab work is largely normal as well as imaging. Disposition Disposition: Home, Self Care
[2023-04-15] MEDS: Ondansetron 4 MG/2 ML Vial IV (22:43)
[2023-04-15] MEDS: 0.9% Normal Saline (1000mL) 1,000 ML 1000 ML IV (22:43)
[2023-04-15 22:45] LABS: Absolute Lymphocyte Count 2.38 X10^3/uL (0.83-4.51); Absolute Neutrophil Count 1.3 X10^3/uL (2.0-7.7); Basophil# 0.03 X10^3/uL; Basophil% 0.7 % (0-1); Eosinophil# 0.09 X10^3/uL; Eosinophils% 2.1 % (0-5); Hematocrit 38.8 % (37-47); Hemoglobin 12.9 g/dL (12.0-15.0); Lymphocyte # 2.38 X10^3/ul (0.83-4.51); Mean Corp Hgb Conc 33.2 g/dL (32-36); Mean Corpuscular Hgb 29.3 pg (27.0-32.0); Mean Corpuscular Volume 88.2 fL (81-99); Mean Platelet Vol. 9.3 fl (6.2-12.0); Monocyte# 0.43 X10^3/uL; Monocyte% 10.1 % (0-10); NRBC Flagged by Analyzer 0 % (0-5); Neutrophil # 1.32 X10^3/uL (2.7-7.7); Neutrophil % 31.1 % (47-70); Platelet Count 227 K/mm3 (150-450); RBC Distribution Width CV 12.1 % (11.6-14.6); RBC Distribution Width SD 38.9 fl (35.1-43.9); White Blood Count 4.3 K/mm3 (4.4-11.0)
[2023-04-15 22:53] LABS: Prothrombin Time (Protime)PT. 13.5 SECONDS (11.7-14.9)
[2023-04-15 22:54] LABS: AST(SGOT) 21 U/L (15-37); Alanine Aminotransfer ALT/SGPT 52 U/L (13-56); Albumin, Serum 3.6 g/dL (3.2-5.0); Alkaline Phosphatase 63 U/L (45-117); Anion Gap 3 (5-15); BUN 9 mg/dL (7-18); BUN/Creat Ratio 14.2 RATIO (10-20); Bilirubin, Direct 0.21 mg/dL (0.00-0.30); Calcium,Total 9.1 mg/dL (8.5-10.1); Chloride 109 mmol/L (98-107); Creatinine, Serum 0.64 mg/dL (0.55-1.02); EST Glomerular Filtration Rate 127 mL/min (>60); Est Glom Filt Rate - Afr Amer 154 mL/min (>60); Estimated Creatinine Clearance 152.55 ml/min; Globulin 3.6 g/dL (2.2-4.2); Glucose 94 mg/dL (74-106); Lipase 48 U/L (13-75); Partial Thromboplast Time 25.6 Seconds (24.1-36.2); Potassium 3.9 mmol/L (3.5-5.1); Protein, Total 7.2 g/dL (6.4-8.2); Sodium Level 138 mmol/L (136-145)
--- OUTSIDE RECORDS SUMMARY | 2023-04-15 22:56 | XMS RPT_ITS | CCD ---
Author Name Unknown Address [address] [place] [address] Organization [facility] Care Team Providers Care Morgue Librarian Name Role Phone DR MEY POOLE Admitting Unavailable SHELLEY FISHER Referring Unavailable SHELLEY FISHER Consulting Unavailable DR MEY POOLE Attending Unavailable DR MEY POOLE Primary Care Unavailable PROVIDER, UNKNOWN Consulting Unavailable Results Test Name Value Interpretation Reference Range Facil ity Encounters Encounter Date Encounter Type Care Provider Facility Start: 01-02-2022 End: 01-02-2022 Emergency department patient visit DR MEY POOLE [facility] Payers Date Payer Category Payer Unknown [id number] Unknown [id number] Unknown 131 Summary Purpose Family History No [...] BE BASED ON THE PRIMARY CLINICAL RECORDS. [employer] provides no warranty or guarantee of the accuracy or completeness of information in this document.
[2023-04-15 23:54] LABS: Bacteria 0 SEEN /hpf (None Seen); Mucous, Urine 0 SEEN /hpf (<or=2+); Red Blood Cells-Urine 0 SEEN /hpf (0-5); White Blood Cells 0 SEEN /hpf (0-5)
[2023-04-15 23:59] LABS: Color, Urine Yellow (Yellow); Glucose, Dipstick Normal (Normal); Ketone-Dipstick Negative (Negative); Leukocyte Esterase-Dipstick 25 /ul (Negative); Nitrite-Dipstick Negative (Negative); Occult Blood-Urine Negative /ul (Negative); Protein-Dipstick Negative (Negative); Urine Bilirubin Dipstick Negative (Negative); Urine Clarity Clear (Clear); Urine Urobilinogen Normal (Normal)
[2023-04-16 00:21] LABS: Internal QC Validated? YES +Cl - CLEAR BKGD; Pregnancy, Urine Negative Negative; Squamous Epithelial Cells - UA 0-5 SEEN /hpf (5-10)
[2023-04-16 02:00] VITALS: PULSE 64; RESP 12; O2SAT 99
--- NOTE | 2023-04-16 22:33 | CT_ITS ---
STUDY: CT ABDOMEN AND PELVIS WITH CONTRAST REASON FOR EXAM: Female, 17 years old. LUQ pain, recent mono RADIATION DOSAGE (If Supplied By Facility): CTDIvol = ( 14.77 ) mGy, DLP = ( 1293.68 ) mGycm TECHNIQUE: IV 100mL Isovue-370 was administered. Transaxial images were obtained from the dome of the diaphragm to the symphysis pubis in the portal venous phase and delayed phases. Multiplanar coronal and sagittal images were reformatted. Individualized Dose Optimization Techniques Were Used For This CT. COMPARISON: 03/02/2023 FINDINGS: LOWER CHEST: Lung bases are clear. No cardiomegaly or pericardial effusion. LIVER: The liver is normal in size, shape, and attenuation. No focal mass. GALLBLADDER AND BILIARY TREE: The gallbladder is normally distended. No gallstones. No gallbladder wall thickening or edema. No pericholecystic fluid. No intra- or extrahepatic biliary ductal dilation. PANCREAS: No focal cystic or solid mass. SPLEEN: Enlarged measuring up to 13.7 cm long axis. No evidence of splenic laceration or rupture. ADRENAL GLANDS: No nodules. KIDNEYS AND URETERS: Normal renal size and position. No hydronephrosis or nephrolithiasis. PERITONEUM: No ascites or free air. No other fluid collection. BOWEL: The stomach is unremarkable. Normal caliber small bowel. There is no obstruction. No colonic wall thickening or inflammation. No free air or free fluid. Normal appendix. LYMPH NODES: No enlarged mesenteric or retroperitoneal lymph nodes. VESSELS: Aorta is non-dilated. URINARY BLADDER: Unremarkable. REPRODUCTIVE ORGANS: No pelvic masses. Uterus and ovaries are normal. ABDOMINAL WALL: No discrete abdominal or pelvic wall hernia. BONES: No acute or suspicious osseous abnormalities. CT/Abdomen/Pelvis W IV Cont ONLY IMPRESSION: * No acute findings in the abdomen or pelvis. * Stable size and appearance of the mildly enlarged spleen which measures up to 13.7 cm long axis. No evidence of splenic laceration or rupture. Electronically Signed: Gabriel Elam MD at 1:25 EST ,
== END 2023-04-16 02:25 | disposition home or self-care (01) ==
PROVIDERS: Emergency Provider Emergency Medicine; PCP Family Medicine; Visit Provider Emergency Medicine
DX: K62.5 Hemorrhage of anus and rectum (principal); K76.0 Fatty (change of) liver, not elsewhere classified; R16.1 Splenomegaly, not elsewhere classified; R10.12 Left upper quadrant pain; R30.0 Dysuria; Z11.52 Encounter for screening for COVID-19; K59.00 Constipation, unspecified; F17.210 Nicotine dependence, cigarettes, uncomplicated
CPT/HCPCS: 74177; 80048; 80076; 81001; 81025; 82274; 83690; 85025; 85610; 85730; 86850; 86900; 86901; 87631; 96361; 96374; 99284; J7030; Q9967; A4216; J2405

== ENCOUNTER → 2023-06-03 | Outpatient (CLI) | payer OTHER, SELFPAY ==
[2023-06-03 10:13] LABS: AST(SGOT) 21 U/L (15-37); Alanine Aminotransfer ALT/SGPT 34 U/L (13-56); Albumin, Serum 3.7 g/dL (3.2-5.0); Alkaline Phosphatase 63 U/L (45-117); Protein, Total 7.7 g/dL (6.4-8.2)
[2023-06-04 16:10] LABS: Angiotensin Convert Enzyme 74 U/L (14-82); IgG, Quant 1389 mg/dL (719-1475); Immunoglobulin G, Subclass 1 844 mg/dL (325-846); Immunoglobulin G, Subclass 2 298 mg/dL (133-509); Immunoglobulin G, Subclass 3 180 mg/dL (19-109); Immunoglobulin G, Subclass 4 43 mg/dL (3-104)
== END | disposition home or self-care (01) ==
LOC: LAB 09:12
PROVIDERS: PCP Family Medicine; Referring Provider Internal Medicine Gastroenterology; Visit Provider Internal Medicine Gastroenterology
DX: B17.9 Acute viral hepatitis, unspecified (principal)
CPT/HCPCS: 36415; 80076; 82164; 82784; 82787

== ENCOUNTER 2023-09-01 18:47 | Emergency (ER) | payer OTHER, SELFPAY ==
[2023-09-01 18:48] VITALS: BP 115/75; PULSE 72; RESP 16; TEMP 36.3; O2SAT 98; BMI 31.3
--- NOTE | 2023-09-01 19:11 | EKG12_ITS ---
Test Reason : [facility] Pressure : / mmHG Vent. Rate : 066 BPM Atrial Rate : 066 BPM P-R Int : 132 ms QRS Dur : 072 ms QT Int : 410 ms P-R-T Axes : 050 063 042 degrees QTc Int : 429 ms Normal sinus rhythm Normal ECG Confirmed by DIXON ESPOSITO, MAK ([id number]), tape editor KEO NAIK ([id number]) on 09/02/2023 11:27:16 AM Referred By: Confirmed By:MAK METCALF MD
--- NOTE | 2023-09-01 19:16 | EX.ED.VIS.PS ---
HPI HPI - Psych History of Present Illness Chief Complaint: Mental Health Informant: patient, spouse/S.O. 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 Patient has been treated with Prozac and buspirone recently for depression. She has been stable on her dose for a couple months. She has had a boyfriend for about 6 months who broke up with her today because the patient states that she cheated on him. Patient states that she used a hunting knife today to cut her bilateral forearms numerous times. She did this on the dorsal surface. Is not the first time that she is cut. She denies cutting anywhere else. She denies any ingestions. Mom accompanies her as does the deputy probation officer [facility] Medical History (Updated 09/01/23 @ 20:[address] Wilian Palacios DO) Tobacco use Obesity Anxiety Depression Home Medications ?Medication ?Instructions ?Recorded ?Last Taken ?Type fluoxetine 40 mg capsule (Prozac) 60 mg PO DAILY depression 03/02/23 03/05/23 History buspirone 10 mg tablet 10 mg PO BID 09/01/23 Unknown History Allergy/AdvReac Type Severity Reaction Status Date / Time No Known Allergies Allergy Verified 04/15/23 20:58 Family History Grandmother Diabetes Father Embolus Grandfather Myocardial infarction Social History Smoking Status: Current some day smoker tobacco type: cigarettes and e-cigarettes alcohol intake: never substance use type: does not use ROS ROS ED Constitutional Constitutional ED: Denies chills or weight loss Eyes Eyes: Denies change in vision or diplopia ENT ENT ED: Denies ear pain, rhinorrhea or sore throat Cardiovascular Cardiovascular: Denies chest pain, orthopnea, palpitations or racing heartbeat Respiratory/Chest Respiratory/Chest: Denies cough, dyspnea or orthopnea Gastrointestinal Gastrointestinal: Denies abdominal pain, diarrhea, nausea or vomiting Genitourinary Genitourinary ED: Denies dysuria, hematuria or urinary frequency Musculoskeletal Musculoskeletal: Denies arthralgias or myalgias Integumentary Reports Abrasions; Denies abscess or rash Neurologic Neurologic: Denies headache(s) or weakness Psychiatric Psychiatric: Reports anxiety, depression and other Details: Patient admits to a desire of self-harm but not suicide ; Denies suicidal ideation or suicidal thoughts Endocrine Endocrinology: Denies polydipsia, polyphagia or polyuria Allergic/Immunologic Allergic/Immunologic ED: Denies mouth swelling, tongue swelling or urticaria EXAM Physical Exam Const Vital Signs: 09/01/23 18:48 Temperature 97.4 F L Temperature Source Temporal Pulse Rate 72 Respiratory Rate 16 Blood Pressure 115/75 Blood Pressure Mean 88 Pulse Ox 98 Oxygen Delivery Method Room Air Positive well nourished and well developed General Appearance ED: well developed HEENT Reports normocephalic, head/scalp atraumatic and moist mucous membranes Eyes PERRL and EOMs intact bilaterally Neck no lymphadenopathy, supple and no JVD Resp normal respiratory effort and clear to auscultation bilaterally Cardio regular rate, regular rhythm and no murmurs GI normal to inspection, nondistended, normoactive bowel sounds and non-tender Palpation: soft Back/Spine no CVA tenderness and normal ROM Extremity normal to inspection General Extremety ED: Negative for edema General Extremity: Negative for edema Neuro oriented x3 and CN's II-XII intact bilaterally Sensorium / Orientation: alert Motor Exam: strength 5/5 throughout Psych Psych Narrative: Patient has a very flat affect and facial expression. She makes minimal eye contact. She is not fidgety or appears internally stimulated. Patient appears exhausted. Appearance: grossly normal Attitude: withdrawn Speech: minimal and soft Mood & Affect: depressed, sad and flat affect Thought Content: other She admits to self-harm and feels that loss for what to do Memory / Cognition: memory grossly intact Skin no rashes or lesions noted and no wounds MDM MDM MDM Narrative Medical decision making narrative: Differential diagnosis includes but not limited to depression anxiety suicidal ideation cutting behavior situational depression Psychiatric screening labs were obtained shows toxicology positive for cannabis. Otherwise negative CMP normal TSH no anemia. EKG does not show any QT prolongation or preexcitation changes. Patient was assessed by crisis. At this point patient certainly has a history of self-harm through cutting behavior but is not actively suicidal at this time. She has an appointment tomorrow to see her counselor. Work on a safety plan her have her follow-up there. History & Record Review Discussion w/independent historian: Patient and Family Lab Data Attestation: I reviewed the patient's lab results. Labs: Laboratory Results - last 24 hr 09/01/23 19:20 WBC 4.9 RBC 4.88 Hgb 13.8 Hct 41.9 MCV 85.9 MCH 28.3 MCHC 32.9 RDW Std Deviation 41.1 RDW Coeff of [place] 13.1 Plt Count 240 MPV 9.1 Immature Gran % (Auto) 0.400 Neut % (Auto) 66.4 Lymph % (Auto) 26.1 [place] % (Auto) 6.3 Eos % (Auto) 0.4 Baso % (Auto) 0.4 Absolute Neuts (auto) 3.3 Absolute Lymphs (auto) 1.28 Nucleated RBC % 0 Sodium 138 Potassium 3.7 Chloride 105 Carbon Dioxide 26.0 Anion Gap 7 BUN 12 Creatinine 0.65 Estim Creat Clear Calc 150.23 Est GFR (MDRD) Af Amer 149 Est GFR (MDRD) Non-Af 123 BUN/Creatinine Ratio 18.4 Glucose 97 Calcium 9.3 Total Bilirubin 0.40 AST 15 ALT 24 Alkaline Phosphatase 54 Total Protein 7.5 Albumin 3.8 Globulin 3.7 Albumin/Globulin Ratio 1.0 TSH 0.68 Serum , Qual NEGATIVE Urine Opiates Screen NEGATIVE Urine Methadone Screen NEGATIVE Ur Barbiturates Screen NEGATIVE Ur Phencyclidine Scrn NEGATIVE Ur Amphetamines Screen NEGATIVE MDMA (Ecstasy) Screen NEGATIVE U Benzodiazepines Scrn NEGATIVE Urine Cocaine Screen NEGATIVE U Cannabinoids Screen POSITIVE H Ur Drug Screen Comment Ethyl Alcohol < 3.0 EKG Initial EKG: Attestation: I personally reviewed and interpreted this EKG as follows: Comments: Normal sinus rhythm ventricular rate of 66 bpm Discharge Plan Triage Chief Complaint: Mental Health ED Provider: Wilian Palacios Dx/Rx/DC Orders Clinical Impression: Depression, Deliberate self-cutting Instructions: CONTRACT, No Harm, ED Depression Prescriptions: No Action fluoxetine [Prozac] 40 mg capsule 60 mg PO DAILY buspirone 10 mg tablet 10 mg PO BID Primary Care Provider: Christopher Hampton Referrals: Christopher Hampton DO [Primary Care Provider] - As Needed Activity Restrictions/Additional Instructions: Please follow-up with your mental health counselor tomorrow as scheduled Print Language: [place] Disposition Disposition: Home, Self Care
[2023-09-01 19:28] LABS: Absolute Lymphocyte Count 1.28 X10^3/uL (0.83-4.51); Absolute Neutrophil Count 3.3 X10^3/uL (2.0-7.7); Basophil# 0.02 X10^3/uL; Basophil% 0.4 % (0-1); Eosinophil# 0.02 X10^3/uL; Eosinophils% 0.4 % (0-5); Hematocrit 41.9 % (37-47); Hemoglobin 13.8 g/dL (12.0-15.0); Lymphocyte # 1.28 X10^3/ul (0.83-4.51); Lymphocyte % 26.1 % (19-41); Mean Corp Hgb Conc 32.9 g/dL (32-36); Mean Corpuscular Hgb 28.3 pg (27.0-32.0); Mean Corpuscular Volume 85.9 fL (81-99); Mean Platelet Vol. 9.1 fl (6.2-12.0); Monocyte# 0.31 X10^3/uL; Monocyte% 6.3 % (0-10); NRBC Flagged by Analyzer 0 % (0-5); Neutrophil # 3.26 X10^3/uL (2.7-7.7); Neutrophil % 66.4 % (47-70); Platelet Count 240 K/mm3 (150-450); RBC Distribution Width CV 13.1 % (11.6-14.6); RBC Distribution Width SD 41.1 fl (35.1-43.9); Red Blood Count 4.88 M/mm3 (4.2-5.4); White Blood Count 4.9 K/mm3 (4.4-11.0)
[2023-09-01 19:38] LABS: Internal QC Validated? YES +Cl - CLEAR BKGD; Pregnancy, Serum, hCG Quali. NEGATIVE Negative
[2023-09-01 19:48] LABS: Alcohol, Blood (Medical)-Serum < 3.0 mg/dL
[2023-09-01 19:59] LABS: AST(SGOT) 15 U/L (15-37); Alanine Aminotransfer ALT/SGPT 24 U/L (13-56); Albumin, Serum 3.8 g/dL (3.2-5.0); Alkaline Phosphatase 54 U/L (45-117); Anion Gap 7 (5-15); BUN 12 mg/dL (7-18); BUN/Creat Ratio 18.4 RATIO (10-20); Calcium,Total 9.3 mg/dL (8.5-10.1); Chloride 105 mmol/L (98-107); Creatinine, Serum 0.65 mg/dL (0.55-1.02); EST Glomerular Filtration Rate 123 mL/min (>60); Est Glom Filt Rate - Afr Amer 149 mL/min (>60); Estimated Creatinine Clearance 150.23 ml/min; Globulin 3.7 g/dL (2.2-4.2); Glucose 97 mg/dL (74-106); Potassium 3.7 mmol/L (3.5-5.1); Protein, Total 7.5 g/dL (6.4-8.2); Sodium Level 138 mmol/L (136-145); Thyroid Stim Hormone (TSH) 0.68 uIU/mL (0.358-3.74)
[2023-09-01 20:05] LABS: Amphetamine Urine VISTA NEGATIVE (<1000 ng/mL); Barbiturate Urine VISTA NEGATIVE (< 200 ng/mL); Benzodiazepine Urine VISTA NEGATIVE (< 200 ng/mL); Cocaine Urine VISTA NEGATIVE (< 300 ng/mL); Ecstacy Urine VISTA NEGATIVE (< 500 ng/mL); Methadone Urine VISTA NEGATIVE (< 300 ng/mL); PCP Urine VISTA NEGATIVE (< 25 ng/mL); THC Urine VISTA POSITIVE (< 50 ng/mL); Vista UDS pH Range 6
[2023-09-01 22:19] VITALS: BP 107/65; PULSE 80; RESP 18; TEMP 35.9; O2SAT 97
== END 2023-09-01 22:53 | disposition home or self-care (01) ==
PROVIDERS: Emergency Provider Emergency Medicine; PCP Family Medicine; Visit Provider Emergency Medicine
DX: F32.A Depression, unspecified (principal); X78.1XXA Intentional self-harm by knife, initial encounter; S50.811A Abrasion of right forearm, initial encounter; S50.812A Abrasion of left forearm, initial encounter; F41.9 Anxiety disorder, unspecified; F17.210 Nicotine dependence, cigarettes, uncomplicated; F17.290 Nicotine dependence, other tobacco product, uncomplicated; Z79.899 Other long term (current) drug therapy
CPT/HCPCS: 36415; 80053; 80307; 80320; 84443; 84703; 85025; 93005; 99283; G0480

== ENCOUNTER 2024-03-02 16:46 | Emergency (ER) | payer SELFPAY ==
[2024-03-02 16:46] VITALS: BP 132/67; PULSE 92; RESP 18; TEMP 36.8; O2SAT 98; BMI 32.5
[2024-03-02] MEDS: 0.9% Normal Saline (1000mL) 1,000 ML 1000 ML IV (17:52)
[2024-03-02] MEDS: Ondansetron 4 MG/2 ML Vial IV (17:52)
[2024-03-02 18:30] LABS: Anion Gap 8 (5-15); BUN 10 mg/dL (7-18); BUN/Creat Ratio 16.4 RATIO (10-20); Calcium,Total 9.1 mg/dL (8.5-10.1); Chloride 105 mmol/L (98-107); Creatinine, Serum 0.61 mg/dL (0.55-1.02); EST Glomerular Filtration Rate 132 mL/min (>60); Est Glom Filt Rate - Afr Amer 160 mL/min (>60); Estimated Creatinine Clearance 167.54 ml/min; Glucose 90 mg/dL (74-106); Potassium 3.3 mmol/L (3.5-5.1); Sodium Level 134 mmol/L (136-145)
[2024-03-02 18:33] LABS: Red Blood Cells-Urine 0 SEEN /hpf (0-5)
[2024-03-02 18:35] LABS: Color, Urine Yellow (Yellow); Glucose, Dipstick Normal (Normal); Leukocyte Esterase-Dipstick 25 /ul (Negative); Nitrite-Dipstick Negative (Negative); Occult Blood-Urine Negative /ul (Negative); Protein-Dipstick 30 mg/dl (Negative); Urine Bilirubin Dipstick Negative (Negative); Urine Clarity Clear (Clear); Urine Urobilinogen 1 mg/dl (Normal)
[2024-03-02 18:46] VITALS: BP 125/65; PULSE 82; RESP 16; O2SAT 99
[2024-03-02 18:57] LABS: Internal QC Validated? YES +Cl - CLEAR BKGD
[2024-03-02 18:59] LABS: Pregnancy, Serum, hCG Quali. POSITIVE Negative
[2024-03-02 19:01] LABS: Ketone-Dipstick 150 mg/dl (Negative)
[2024-03-02 19:05] LABS: Bacteria 1+ /hpf (None Seen); Mucous, Urine RARE /hpf (<or=2+); Squamous Epithelial Cells - UA 0-5 SEEN /hpf (5-10); White Blood Cells 0-5 SEEN /hpf (0-5)
[2024-03-02 20:00] VITALS: BP 128/70; PULSE 83; RESP 16; O2SAT 99
--- NOTE | 2024-03-02 20:19 | EDS_ITS ---
HPI History of Present Illness Chief Complaint: Nausea/Vomiting/Diarrhea Detail of Chief Complaint: Nausea, vomiting and constipation not diarrhea Informant: patient Onset/Context/Timing Onset: Days (Started this past weekend. She is concerned she has mono.) Context: Sudden Onset Timing: Continuous and Waxes and wanes Quality: Viral-like symptoms with nausea and vomiting Location: Systemic Current Severity: Mild Maximum Severity: Moderate Worsened by: Nothing Relieved by: Nothing Associated Symptoms Associated Symptoms: Nausea and vomiting for the past several days. Unable to keep anything fish Narrative Narrative: Is a 18-year-old female who presents with nausea vomiting and constipation. She also complains of upper respiratory viral-like symptoms with headache, congestion, slight cough and aches. She also feels fatigued and drained. She states she had mono last year. Her menses is late. She does not use any form of control. She has no history of STI. She denies dysuria, frequency, urgency or hematuria. She has had decreased urine output. Patient denies rash. Patient denies documented fever. Prior similar symptoms: Yes (Miner) PFSH PFSH Medical History Tobacco use Obesity Anxiety Depression Home Medications ?Medication ?Instructions ?Recorded ?Last Taken ?Type fluoxetine 40 mg capsule (Prozac) 60 mg PO DAILY depression 03/02/23 03/05/23 History buspirone 10 mg tablet 10 mg PO BID 09/01/23 Unknown History ondansetron 4 mg disintegrating 4 mg PO Q8H PRN PRN Nausea #10 tabs 03/02/24 Unknown Rx tablet Allergy/AdvReac Type Severity Reaction Status Date / Time No Known Allergies Allergy Verified 03/02/24 16:46 Family History Grandmother Diabetes Father Embolus Grandfather Myocardial infarction Social History Smoking Status: Current some day smoker tobacco type: cigarettes and e- cigarettes alcohol intake: never substance use type: does not use ROS ROS ED Constitutional Constitutional ED: Reports fever(s) and subjective; Denies chills, sweats or weight loss Eyes Eyes: Denies blurry vision, change in vision or diplopia ENT ENT ED: Reports rhinorrhea; Denies ear pain or sore throat Cardiovascular Cardiovascular: Denies chest pain, orthopnea, palpitations or paroxysmal nocturnal dyspnea Respiratory/Chest Respiratory/Chest: Reports cough and dyspnea; Denies dyspnea on exertion, orthopnea or paroxysmal nocturnal dyspnea Gastrointestinal Gastrointestinal: Reports constipation, nausea and vomiting; Denies abdominal pain, diarrhea or melena Genitourinary Genitourinary ED: Reports LMP (females 10-50) Details: Comment: (She is approximately 2 weeks late.); Denies dysuria, hematuria or urinary frequency Musculoskeletal Musculoskeletal: Denies arthralgias or myalgias Integumentary Denies rash Neurologic Neurologic: Reports headache(s) and weakness; Denies paresthesias Psychiatric Psychiatric: Denies anxiety or depression Endocrine Endocrinology: Denies cold intolerance or heat intolerance Hematologic/Lymphatic Hematologic/Lymphatic: Reports systems reviewed and no addt'l complaints, except as documented EXAM Physical Exam Const Vital Signs: 03/02/24 16:46 03/02/24 18:46 03/02/24 20:00 Temperature 98.2 F Temperature Source Oral Pulse Rate 92 82 83 Respiratory Rate 18 16 16 Blood Pressure 132/67 H 125/65 H 128/70 H Blood Pressure Mean 88 85 89 Pulse Ox 98 99 99 Oxygen Delivery Method Room Air Room Air Room Air Positive well nourished and well developed Constitutional Narrative: BMI 32.5. General Appearance ED: well developed, NAD and pallor HEENT Reports TM's clear and dry mucous membranes Negative for trauma or tenderness Tympanic Membrane ED: Yes TM's clear Mouth ED: Yes dry mucous membranes Mouth: dry mucous membranes Eyes PERRL and EOMs intact bilaterally General Eye ED: Negative for pale conjunctiva or scleral icterus Neck no lymphadenopathy, supple and no JVD Chest Wall inspection of chest normal and palpation of chest normal Resp normal respiratory effort and clear to auscultation bilaterally Cardio regular rate, regular rhythm, S1 normal heart sound, S2 normal heart sound and no murmurs GI normal to inspection, nondistended, normoactive bowel sounds, non-tender, non- distended and no masses; Negative for hepatosplenomegaly Back/Spine no CVA tenderness Extremity normal to inspection General Extremety ED: Negative for edema or tenderness General Extremity: Negative for edema Neuro oriented x3 and CN's II-XII intact bilaterally Sensorium / Orientation: alert Psych mental status grossly normal Skin no rashes or lesions noted, no wounds and skin turgor normal General Skin Exam: pallor; Negative for elasticity normal or jaundice MDM MDM MDM Narrative Medical decision making narrative: Differential diagnosis includes with fatigue and hyperemesis, viral illness, will obtain electrolyte panel to assess glucose, CO2 anion gap and her electrolytes. UA was obtained to assess specific gravity and determine if there is any ketones in her urine. She was treated with Zofran and 1 L of normal saline. Lab Data Attestation: I reviewed the patient's lab results. Lab results narrative: Serum test was positive. Urinalysis reveals spec gravity 1.020 with proteinuria, ketones and urobilinogen on macro. Micro reveals no pyuria with 1+ bacteria. By definition this is asymptomatic bacteriuria. This may also be due to the fact that she is dehydrated. Labs: Laboratory Results - last 24 hr 03/02/24 03/02/24 17:54 18:27 Sodium 134 L Potassium 3.3 L Chloride 105 Carbon Dioxide 21.0 Anion Gap 8 BUN 10 Creatinine 0.61 Estim Creat Clear Calc 167.54 Est GFR (MDRD) Af Amer 160 Est GFR (MDRD) Non-Af 132 BUN/Creatinine Ratio 16.4 Glucose 90 Calcium 9.1 Serum , Qual POSITIVE Urine Color Yellow Urine Clarity Clear Urine pH 6.0 Ur Specific [place] 1.020 Urine Protein 30 H Urine Glucose (UA) Normal Urine Ketones 150 A* Urine Occult Blood Negative Urine Nitrite Negative Urine Bilirubin Negative Urine Urobilinogen 1 H Ur Leukocyte Esterase 25 H Urine RBC 0 SEEN Urine WBC 0-5 SEEN Ur Squamous Epith Cells 0-5 SEEN Urine Bacteria 1+ Urine Mucus RARE Treatment and Re-Evaluation :: Patient, mother and significant other were informed of results. Discharge Plan Triage Chief Complaint: Nausea/Vomiting/Diarrhea ED Provider: Dank Jovel Dx/Rx/DC Orders Clinical Impression: First trimester , Constipation, Nausea and vomiting, Ketosis, Acute dehydration, Upper respiratory virus Instructions: 1st Trimester, ED Vomiting (Adult) Prescriptions: New ondansetron 4 mg tablet,disintegrating 4 mg PO Q8H PRN PRN (Reason: Nausea) Qty: 10 0RF No Action fluoxetine [Prozac] 40 mg capsule 60 mg PO DAILY buspirone 10 mg tablet 10 mg PO BID Primary Care Provider: Christopher Hampton Referrals: Christopher Hampton DO [Primary Care Provider] - Kayli Walsh MD [Med Staff - Active Staff] - 1-2 Weeks Print Language: Wolof Disposition Disposition: Home, Self Care
== END 2024-03-02 20:36 | disposition home or self-care (01) ==
PROVIDERS: Emergency Provider Emergency Medicine; PCP Family Medicine; Visit Provider Emergency Medicine
DX: O99.611 Diseases of the digestive system complicating pregnancy, first trimester (principal); E88.89 Other specified metabolic disorders; E86.0 Dehydration; O99.331 Smoking (tobacco) complicating pregnancy, first trimester; R19.7 Diarrhea, unspecified; O99.281 Endocrine, nutritional and metabolic diseases complicating pregnancy, first trimester; K59.00 Constipation, unspecified; F17.210 Nicotine dependence, cigarettes, uncomplicated; F17.290 Nicotine dependence, other tobacco product, uncomplicated; O21.9 Vomiting of pregnancy, unspecified; O99.511 Diseases of the respiratory system complicating pregnancy, first trimester; J06.9 Acute upper respiratory infection, unspecified; Z3A.00 Weeks of gestation of pregnancy not specified
CPT/HCPCS: 80048; 81001; 84703; 96361; 96374; 99284; A4216; J2405

== ENCOUNTER 2024-03-06 11:02 | Emergency (ER) | payer OTHER, SELFPAY ==
[2024-03-06 11:02] VITALS: BP 116/90; PULSE 149; RESP 22; TEMP 36.1; O2SAT 98
[2024-03-06 11:04] VITALS: BMI 31.2
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
[2024-03-06] MEDS: 0.9% Normal Saline (1000mL) 1,000 ML 999 ML IV (11:37)
[2024-03-06] MEDS: Metoclopramide 10 MG/2 ML Vial IV (11:37)
[2024-03-06 11:48] LABS: Absolute Neutrophil Count 7.7 X10^3/uL (2.0-7.7); Basophil# 0.03 X10^3/uL; Basophil% 0.3 % (0-1); Eosinophil# 0.01 X10^3/uL; Eosinophils% 0.1 % (0-5); Hematocrit 42.4 % (37-47); Hemoglobin 15.9 g/dL (12.0-15.0); Lymphocyte % 16.7 % (19-41); Mean Corp Hgb Conc 37.5 g/dL (32-36); Mean Corpuscular Hgb 30.1 pg (27.0-32.0); Mean Corpuscular Volume 80.2 fL (81-99); Monocyte# 0.77 X10^3/uL; Monocyte% 7.5 % (0-10); NRBC Flagged by Analyzer 0 % (0-5); Neutrophil # 7.67 X10^3/uL (2.7-7.7); Neutrophil % 75.1 % (47-70); Platelet Count 298 K/mm3 (150-450); RBC Distribution Width CV 11.9 % (11.6-14.6); RBC Distribution Width SD 34.4 fl (35.1-43.9); Red Blood Count 5.29 M/mm3 (4.2-5.4); White Blood Count 10.2 K/mm3 (4.4-11.0)
[2024-03-06 12:14] LABS: Mucous, Urine 0 SEEN /hpf (<or=2+)
[2024-03-06 12:15] LABS: ALB/GLOB Ratio 0.9 RATIO (0.9-2.4); AST(SGOT) 10 U/L (15-37); Alanine Aminotransfer ALT/SGPT 19 U/L (13-56); Albumin, Serum 4.1 g/dL (3.2-5.0); Alkaline Phosphatase 65 U/L (45-117); Anion Gap 11 (5-15); BUN 14 mg/dL (7-18); BUN/Creat Ratio 21.2 RATIO (10-20); Calcium,Total 9.5 mg/dL (8.5-10.1); Chloride 102 mmol/L (98-107); Creatinine, Serum 0.66 mg/dL (0.55-1.02); EST Glomerular Filtration Rate 121 mL/min (>60); Est Glom Filt Rate - Afr Amer 147 mL/min (>60); Globulin 4.4 g/dL (2.2-4.2); Glucose 110 mg/dL (74-106); Lipase 46 U/L (13-75); Potassium 2.7 mmol/L (3.5-5.1); Protein, Total 8.5 g/dL (6.4-8.2); Sodium Level 133 mmol/L (136-145)
[2024-03-06 12:17] LABS: Color, Urine Yellow (Yellow); Glucose, Dipstick Normal (Normal); Leukocyte Esterase-Dipstick 25 /ul (Negative); Nitrite-Dipstick Negative (Negative); Occult Blood-Urine 50 /ul (Negative); Protein-Dipstick 30 mg/dl (Negative); Urine Bilirubin Dipstick Negative (Negative); Urine Clarity Cloudy (Clear); Urine Urobilinogen 1 mg/dl (Normal)
[2024-03-06 12:22] LABS: Ketone-Dipstick 150 mg/dl (Negative)
[2024-03-06 12:31] LABS: Amorphous Sediment 2+; Bacteria 3+ /hpf (None Seen); Red Blood Cells-Urine 10-25 SEEN /hpf (0-5); Squamous Epithelial Cells - UA 10-25 SEEN /hpf (5-10); White Blood Cells 5-10 SEEN /hpf (0-5)
[2024-03-06] MEDS: Potassium Chloride Oral Soln 20 MEQ/15 ML UDC 40 MEQ PO (12:40)
[2024-03-06] MEDS: Potassium Chloride 10mEq/100mL 10 MEQ/100 ML IV.SOLN. 100 MEQ IV BOLUS ×4 (12:46→17:00)
[2024-03-06] MEDS: Dextrose 5%/0.9% NaCl 1,000 ML 100 ML IV (13:02)
[2024-03-06 13:29] VITALS: BP 122/71; PULSE 84; RESP 17; O2SAT 98
[2024-03-06] MEDS: Ceftriaxone 1 GM/50 ML BAG IV (13:40)
[2024-03-06 15:00] VITALS: PULSE 71; RESP 16; O2SAT 99
[2024-03-06 17:00] VITALS: BP 112/71; PULSE 75; RESP 16; O2SAT 99
--- NOTE | 2024-03-06 17:15 | CM.ED ---
Social Work: Date of referral: 03/06/2024 Reason for referral: Recent diagnosis, hx of mental health, self-injurious behavior and drug use Referred by: Social Work Identification Patient provided consent for social work visit. Patient's boyfriend Delgado was at patient's bedside and patient stated it would be ok for Delgado to remain during the visit. Patient just had an ED visit to [facility] on 03/02/24 at which point patient found out she was . Patient reported she panicked at first, had some anxiety and is now excited. On 09/01/23, patient had been treated in the ED due to self-injurious behavior which involved patient cutting herself with a hunting knife. At that time, patient also tested positive for cannabinoids, reported cigarette use and has a history of depression and anxiety. Patient hasn't gotten established with an OB as of yet however is in the process of trying to find the best place to go. Delgado spoke up and gave a suggestion due to already having 4 children from someone other than patient. layup worker provided education to patient about how getting connected with an OB sooner rather than later is better which patient stated she would do. layup worker provided education about pre-da vitamins which Delgado stated he already bought for the patient however patient stated she cannot keep them down as of yet. Patient reported she no longer smokes cigarettes but occasionally vapes. Patient reported she has smoked marijuana since finding out she was to try and help offset the on-going nausea she's had. layup worker provided education about vaping and smoking marijuana while which patient verbalized she understood. Patient reported she has a large Rastafari family, patient stated her family is aware that she is and is supportive. layup worker asked patient about depression and anxiety and patient reported other than feeling anxious at times, her depression is under control and patient stated overall she is doing good. Patient reported she tool herself off of her medication when she found out she was at which point social media marketer advised patient to talk to the doctor about. Patient denied any other concerns or needs at this time. Annie Anderson, BOBBIN TRUCKER, MARKETING SERVICES COORDINATOR
[2024-03-06 18:02] VITALS: BP 112/71; PULSE 75; RESP 16; TEMP 36.6; O2SAT 99
== END 2024-03-06 18:03 | disposition home or self-care (01) ==
PROVIDERS: Emergency Provider Emergency Medicine; PCP Family Medicine; Visit Provider Emergency Medicine
DX: O99.281 Endocrine, nutritional and metabolic diseases complicating pregnancy, first trimester (principal); E88.89 Other specified metabolic disorders; O21.8 Other vomiting complicating pregnancy; O99.331 Smoking (tobacco) complicating pregnancy, first trimester; F17.210 Nicotine dependence, cigarettes, uncomplicated; F17.290 Nicotine dependence, other tobacco product, uncomplicated; O99.341 Other mental disorders complicating pregnancy, first trimester; F32.A Depression, unspecified; F41.9 Anxiety disorder, unspecified; Z3A.01 Less than 8 weeks gestation of pregnancy; Z79.899 Other long term (current) drug therapy
CPT/HCPCS: 80053; 81001; 83690; 85025; 87086; 87088; 87631; 96365; 96366; 96368; 96375; 99283; A4216

== ENCOUNTER 2024-03-24 22:22 | Emergency (ER) | payer MEDICAID, SELFPAY ==
[2024-03-24 22:22] VITALS: BP 130/65; PULSE 119; RESP 20; TEMP 36.1; O2SAT 99
[2024-03-24 22:47] VITALS: BMI 31.6
[2024-03-24] MEDS: proCHLORPERazine 10 MG/2 ML Vial IV (22:57)
[2024-03-24] MEDS: 0.9% Normal Saline (1000mL) 1,000 ML 999 ML IV ×2 (22:57→23:53)
[2024-03-24] MEDS: DiphenhydrAMINE 50 MG/ML Syringe 25 MG IV (22:57)
[2024-03-24 23:17] LABS: Anion Gap 16 (5-15); BUN 13 mg/dL (7-18); BUN/Creat Ratio 16.9 RATIO (10-20); Calcium,Total 9.7 mg/dL (8.5-10.1); Chloride 98 mmol/L (98-107); Creatinine, Serum 0.77 mg/dL (0.55-1.02); EST Glomerular Filtration Rate 101 mL/min (>60); Est Glom Filt Rate - Afr Amer 123 mL/min (>60); Estimated Creatinine Clearance 131.03 ml/min; Glucose 106 mg/dL (74-106); Potassium 2.8 mmol/L (3.5-5.1); Sodium Level 134 mmol/L (136-145)
[2024-03-24 23:30] LABS: Mucous, Urine 0 SEEN /hpf (<or=2+)
[2024-03-24 23:31] LABS: Color, Urine Yellow (Yellow); Glucose, Dipstick Normal (Normal); Leukocyte Esterase-Dipstick 500 /ul (Negative); Nitrite-Dipstick Negative (Negative); Occult Blood-Urine 25 /ul (Negative); Protein-Dipstick 30 mg/dl (Negative); Specific Gravity, Urine 1.025 (1.002-1.030); Urine Clarity Sl. Cloudy (Clear); Urine Urobilinogen 8 mg/dl (Normal)
[2024-03-24 23:36] LABS: Urine Bilirubin Dipstick 3 mg/dL (Negative)
[2024-03-24 23:37] LABS: Ketone-Dipstick 150 mg/dl (Negative)
[2024-03-24 23:43] LABS: Bacteria 2+ /hpf (None Seen); Red Blood Cells-Urine 0-5 SEEN /hpf (0-5); Squamous Epithelial Cells - UA 5-10 SEEN /hpf (5-10); Transitional Epithelial - Ur 0-5 SEEN /hpf (0-5); White Blood Cells 0-5 SEEN /hpf (0-5)
[2024-03-24] MEDS: Potassium Chloride 10mEq/100mL 10 MEQ/100 ML IV.SOLN. 100 MEQ IV BOLUS (23:53)
[2024-03-25 00:30] VITALS: BP 121/76; PULSE 80; RESP 16; O2SAT 98
--- NOTE | 2024-03-25 00:46 | EDS_ITS ---
HPI History of Present Illness Chief Complaint: Nausea/Vomiting Informant: patient and spouse/S.O. Narrative Narrative: Patient is a 18-year-old female who is a G1, P0 approximately 10 weeks along with no significant past medical history. She states she has been nauseous and having recurrent bouts of vomiting since she became . She states she has Phenergan at home but despite taking this has continued to have bouts of vomiting and is feeling fatigued and lightheaded secondary to the recurrent symptoms. She denies any vaginal bleeding or discharge she denies any dysuria or loose stool/diarrhea. She states has been no known sick contact. However as she cannot keep food or fluid down presents for evaluation. [facility] Medical History Tobacco use Obesity Anxiety Depression Home Medications ?Medication ?Instructions ?Recorded ?Last Taken ?Type fluoxetine 40 mg capsule (Prozac) 60 mg PO DAILY depression 03/02/23 03/05/23 History ondansetron 4 mg disintegrating 4 mg PO Q8H PRN PRN Nausea #10 tabs 03/02/24 Unknown Rx tablet cephalexin 500 mg capsule 500 mg PO Q12H 7 days #14 caps 03/06/24 Unknown Rx promethazine 25 mg tablet 25 mg PO Q6H PRN nausea and 03/06/24 Unknown Rx vomiting #30 tabs potassium chloride 10 mEq 10 meq PO DAILY 7 days #7 caps 03/25/24 Unknown Rx capsule,extended release promethazine 25 mg rectal 25 mg [place] 4X/DAY PRN 03/25/24 Unknown Rx suppository Nausea/vomiting #12 ea Allergy/AdvReac Type Severity Reaction Status Date / Time No Known Allergies Allergy Verified 03/24/24 22:23 Family History Grandmother Diabetes Father Embolus Grandfather Myocardial infarction Social History Smoking Status: Current every day smoker tobacco type: cigarettes and e- cigarettes alcohol intake: never substance use type: does not use ROS ROS ED Constitutional Constitutional ED: Denies chills or fever(s) Eyes Eyes: Denies change in vision ENT ENT ED: Denies sore throat Cardiovascular Cardiovascular: Denies chest pain Respiratory/Chest Respiratory/Chest: Denies cough or dyspnea Gastrointestinal Gastrointestinal: Reports nausea and vomiting; Denies abdominal pain or diarrhea Genitourinary Genitourinary ED: Denies dysuria or hematuria Musculoskeletal Musculoskeletal: Denies myalgias Integumentary Denies rash Neurologic Neurologic: Reports weakness; Denies headache(s) Hematologic/Lymphatic Hematologic/Lymphatic: Denies easy bleeding or easy bruising EXAM Physical Exam Const Vital Signs: 03/24/24 22:22 03/25/24 00:30 Temperature 96.9 F L Temperature Source Temporal Pulse Rate 119 H 80 Respiratory Rate 20 H 16 Blood Pressure 130/65 H 121/76 H Blood Pressure Mean 86 91 Pulse Ox 99 98 Oxygen Delivery Method Room Air Room Air Positive well nourished and well developed General Appearance ED: well developed; Negative for pallor HEENT Reports dry mucous membranes HEENT Narrative: No tongue or lip swelling no oral lesions no airway edema or compromise No secondary findings in the posterior pharynx to suggest infection Mouth ED: Yes dry mucous membranes Mouth: dry mucous membranes Eyes PERRL and EOMs intact bilaterally General Eye ED: Negative for scleral icterus Neck supple Neck Narrative: No nuchal rigidity or meningeal signs Resp normal respiratory effort and clear to auscultation bilaterally Cardio regular rhythm Rate: tachycardic and other Other Details: Tachycardic rate with regular rhythm No murmurs rubs or gallops Radial and carotid pulses are equal and symmetric GI non-tender and non-distended GI Narrative: Soft nontender nondistended with hyperactive bowel sounds no voluntary guarding or rigidity or pulsatile mass Auscultation: hyperactive bowel sounds Palpation: soft Back/Spine no CVA tenderness Extremity normal to inspection Extremity Narrative: No asymmetric edema no pitting edema negative Homans' sign bilaterally Neuro oriented x3, CN's II-XII intact bilaterally and no sensory deficits noted Sensorium / Orientation: alert Motor Exam: strength 5/5 throughout Psych mental status grossly normal Skin no rashes or lesions noted General Skin Exam: Negative for jaundice or pallor MDM MDM MDM Narrative Medical decision making narrative: Patient arrived to the ER mildly tachycardic but otherwise with stable vitals. History and exam is consistent with hyperemesis gravidarum leading to dehydration. With concern for electrolyte abnormality such as hypokalemia or hypomagnesemia as well as acute kidney injury basic labs were obtained. Workup revealed hypokalemia with potassium of 2.8 and therefore this was replaced by IV route. After receiving 3 L of normal saline as well as IV Compazine patient reported feeling better her vital signs improved and she had no further bouts of vomiting while in the ER. Therefore at this time I do not feel there is need for admission as she does not have PREET or severe hypokalemia and vitals and symptoms have improved with treatment The patient is urine sample does show +2 bacteria but there is contamination with skin cells and she has no urinary symptoms and therefore I will send the urine for culture but not feel the need for antibiotics at this time History & Record Review Discussion w/independent historian: Patient and Significant other Lab Data Attestation: I reviewed the patient's lab results. Labs: Laboratory Results - last 24 hr 03/24/24 03/24/24 22:52 23:26 Sodium 134 L Potassium 2.8 L Chloride 98 Carbon Dioxide 21.0 Anion Gap 16 H BUN 13 Creatinine 0.77 Estim Creat Clear Calc 131.03 Est GFR (MDRD) Af Amer 123 Est GFR (MDRD) Non-Af 101 BUN/Creatinine Ratio 16.9 Glucose 106 Calcium 9.7 Magnesium 2.0 Urine Color Yellow Urine Clarity Sl. Cloudy Urine pH 6.0 Ur Specific [place] 1.025 Urine Protein 30 H Urine Glucose (UA) Normal Urine Ketones 150 A* Urine Occult Blood 25 H Urine Nitrite Negative Urine Bilirubin 3 H Urine Urobilinogen 8 H Ur Leukocyte Esterase 500 H Urine RBC 0-5 SEEN Urine WBC 0-5 SEEN Ur Squamous Epith Cells 5-10 SEEN Ur Transition Epith Cell 0-5 SEEN Urine Bacteria 2+ Urine Mucus 0 SEEN Discharge Plan Triage Chief Complaint: Nausea/Vomiting ED Provider: Orlin Camacho Dx/Rx/DC Orders Clinical Impression: Hyperemesis gravidarum, Dehydration, Acute hypokalemia Instructions: ED Dehydration (Adult), ED Hyperemesis Gravidarum Prescriptions: New promethazine 25 mg suppository 25 mg [place] 4X/DAY PRN (Reason: Nausea/vomiting) Qty: 12 2RF potassium chloride 10 mEq capsule, extended release 10 meq PO DAILY 7 Days Qty: 7 0RF No Action fluoxetine [Prozac] 40 mg capsule 60 mg PO DAILY ondansetron 4 mg tablet,disintegrating 4 mg PO Q8H PRN PRN (Reason: Nausea) Qty: 10 0RF promethazine 25 mg tablet 25 mg PO Q6H PRN (Reason: nausea and vomiting) Qty: 30 0RF cephalexin 500 mg capsule 500 mg PO Q12H 7 Days Qty: 14 0RF Primary Care Provider: Christopher Hampton Referrals: Christopher Hampton, [Primary Care Provider] - Activity Restrictions/Additional Instructions: Please follow-up with your NAIL STICKER for further evaluation. If you cannot hold down your oral Phenergan then you may try the rectal suppository that was prescr ibed today and please make sure you are replacing your potassium. Return to the ER should you have any further concerns Print Language: Gabonese Disposition Disposition: Home, Self Care
[2024-03-25] MEDS: Potassium Chloride 10mEq/100mL 10 MEQ/100 ML IV.SOLN. 100 MEQ IV BOLUS (00:49)
[2024-03-25 02:00] VITALS: BP 121/70; PULSE 98; RESP 16; TEMP 36.6; O2SAT 98
== END 2024-03-25 02:02 | disposition home or self-care (01) ==
PROVIDERS: Emergency Provider Emergency Medicine; PCP Family Medicine; Visit Provider Emergency Medicine
DX: O21.1 Hyperemesis gravidarum with metabolic disturbance (principal); O99.331 Smoking (tobacco) complicating pregnancy, first trimester; F17.210 Nicotine dependence, cigarettes, uncomplicated; F17.290 Nicotine dependence, other tobacco product, uncomplicated; O99.341 Other mental disorders complicating pregnancy, first trimester; F32.A Depression, unspecified; F41.9 Anxiety disorder, unspecified; Z3A.10 10 weeks gestation of pregnancy; Z79.899 Other long term (current) drug therapy
CPT/HCPCS: 80048; 81001; 83735; 87086; 87088; 96365; 96366; 96375; 99283; A4216